=== PATIENT | male | born 1955 | race Caucasian/White ===

== ENCOUNTER 2016-10-18 07:53 | Day surgery (SDC) | payer BC ==
[2016-10-14 14:45] VITALS: BMI 30.9
[~2016-10-18 07:53] MED LIST: LIDOCAINE 1% 20 ML VIAL (10MG/ML) FOR IV START INTRADERMA PRN
[2016-10-18 08:09] VITALS: TEMP 98.2
[2016-10-18] MEDS: LACTATED RINGERS 1,000 ML IV SCH ×2 (08:16→08:29)
[2016-10-18] MEDS ORDERED: PROPOFOL 10 MG/ML 20 ML VIAL IV ONE (08:31)
[2016-10-18 09:08] VITALS: RESP 18
--- NOTE | 2016-10-18 09:13 | P.PCN ---
Date of Procedure: 10/18/16 Procedure(s) Performed: Procedure: Total colonoscopy. Preoperative diagnosis: Screening for neoplasia patient has history of polyps. Postoperative diagnosis: Exam within normal limits. Preparation: HalfLytely prep. Sedation: Was provided by anesthesia. Brief clinical history: The patient is 61-year-old male who is scheduled for this evaluation because of history of polyps. His last exam was in July 2011 and his first exam was in 2005. The patient has no abdominal complaints, bleeding or anemia. There is family history of colon cancer in his maternal grandmother as well as her brother. His sister had polyps. Procedure: With the patient on his left lateral decubitus position and after informed consent and adequate sedation, the perianal area was inspected and it did not show any fissures or fistulas. There were no masses felt on digital rectal examination. The Olympus CFQ 160L video colonoscope was then inserted in the rectum in the usual fashion and advanced to the cecum. The mucosa appeared healthy. No polyps or tumors were seen or any diverticular disease or other pathology. I retroflexed endoscope in the rectum before the endoscope was withdrawn. The patient tolerated the procedure well. Plan: The patient was reassured. He will follow up with you as planned and I recommended a repeat exam in 5 years.
[2016-10-18 09:32] VITALS: BP 123/76; PULSE 68
== END 2016-10-18 09:55 | disposition home or self-care (01) ==
LOC: ORWHC2ENDO 07:53
DX: Z12.11 Encounter for screening for malignant neoplasm of colon (principal); Z86.010 Personal history of colon polyps; Z80.0 Family history of malignant neoplasm of digestive organs; I25.10 Atherosclerotic heart disease of native coronary artery without angina pectoris; I10 Essential (primary) hypertension; Z87.891 Personal history of nicotine dependence; E78.5 Hyperlipidemia, unspecified; G47.33 Obstructive sleep apnea (adult) (pediatric); Z79.82 Long term (current) use of aspirin; Z79.899 Other long term (current) drug therapy
CPT/HCPCS: J2704; G0105; 99153

== ENCOUNTER 2017-10-23 10:02 | Inpatient (IN) | payer BC ==
--- NOTE | 2017-10-23 10:23 | ED ---
General Adult HPI - General Chief complaint: Chest Pain Stated complaint: Chest pain Time Seen by Provider: 10/23/17 10:13 Source: patient, family, RN notes reviewed, old records reviewed Mode of arrival: wheelchair Limitations: no limitations - History of Present Illness Initial comments: This is a 62-year-old male the ER for evasive chest pain near syncopal event. Patient does have history of heart history has history of ventricular fibrillation. Patient has follow-up with cardiology, did have heart catheterization in the past. Patient states her no chest pain has continued. He has no shortness of breath. Patient has a chest pain for 3-4 days, is been episodic. Patient was at [employer] today had that episode chest pain again and then became diaphoretic and fell using pass out. At this point patient symptoms are improved, he denies pain. - Related Data Home Medications Medication Instructions Recorded Confirmed Aspirin 81 mg PO DAILY 10/14/16 10/23/17 Atorvastatin [Lipitor] 40 mg PO HS 10/14/16 10/23/17 Citalopram Hydrobromide [CeleXA] 20 mg PO DAILY 10/14/16 10/23/17 Isosorbide Mononitrate ER [Imdur] 30 mg PO DAILY 10/14/16 10/23/17 Losartan/Hydrochlorothiazide 1 tab PO DAILY 10/14/16 10/23/17 [Losartan-Hctz 100-25 mg Tab] Methylphenidate HCl [Ritalin] 10 mg PO AC-TID 10/14/16 10/23/17 Metoprolol Succinate (ER) [Toprol 50 mg PO DAILY 10/14/16 10/23/17 Xl] Multivitamin [Men's Multi-Vitamin] 1 tab PO DAILY 10/14/16 10/23/17 amLODIPine BESYLATE [Norvasc] 5 mg PO HS 10/14/16 10/23/17 Omeprazole 20 mg PO DAILY 10/23/17 10/23/17 Allergies Allergy/AdvReac Type Severity Reaction Status Date / Time No Known Allergies Allergy Verified 10/23/17 10:53 Review of Systems ROS Statement: Those systems with pertinent positive or pertinent negative responses have been documented in the HPI. ROS Other: All systems not noted in ROS Statement are negative. Past Medical History Past Medical History: Hyperlipidemia, Hypertension, Myocardial Infarction ([place]), Osteoarthritis (OA), Sleep Apnea/CPAP/BIPAP Last Myocardial Infarction Date:: 2012 History of Any Multi-Drug Resistant Organisms: None Reported Past Surgical History: Heart Catheterization, Orthopedic Surgery, Tonsillectomy Additional Past Surgical History / Comment(s): R foot & R ankle surgery, colonoscopy. Past Anesthesia/Blood Transfusion Reactions: No Reported Reaction Past Psychological History: ADD/ADHD, Depression Smoking Status: Former smoker Past Alcohol Use History: None Reported Past Drug Use History: Marijuana - Past Family History Mother Family Medical History: Cancer Additional Family Medical History / Comment(s): Cervical Father Family Medical History: Cancer Additional Family Medical History / Comment(s): Prostate General Exam Limitations: no limitations General appearance: alert, in no apparent distress Head exam: Present: atraumatic, normocephalic, normal inspection Eye exam: Present: normal appearance, PERRL, EOMI. Absent: scleral icterus, conjunctival injection, periorbital swelling ENT exam: Present: normal exam, mucous membranes moist Neck exam: Present: normal inspection. Absent: tenderness, meningismus, lymphadenopathy Respiratory exam: Present: normal lung sounds bilaterally. Absent: respiratory distress, wheezes, rales, rhonchi, stridor Cardiovascular Exam: Present: regular rate, normal rhythm, normal heart sounds. Absent: systolic murmur, diastolic murmur, rubs, gallop, clicks GI/Abdominal exam: Present: soft, normal bowel sounds. Absent: distended, tenderness, guarding, rebound, rigid Extremities exam: Present: normal inspection, full ROM, normal capillary refill. Absent: tenderness, pedal edema, joint swelling, calf tenderness Back exam: Present: normal inspection Neurological exam: Present: alert, oriented X3, CN II-XII intact Psychiatric exam: Present: normal affect, normal mood Skin exam: Present: warm, dry, intact, normal color. Absent: rash Course Vital Signs 10/23/17 10/23/17 10:11 10:50 Temperature 97.6 F Pulse Rate 75 68 Respiratory 18 16 Rate Blood Pressure 144/86 127/70 O2 Sat by Pulse 97 100 Oximetry - Reevaluation(s) Reevaluation #1: 10/23/17 10:23 Medical record and prior heart history I reviewed Reevaluation #2: 10/23/17 11:19 Patient patient denies chest pain EKG Findings - EKG Comments: EKG Findings:: EKG shows normal sinus rhythm rate of 73, SC 160, QRS 108, QTC 471 Medical Decision Making - Medical Decision Making 60 female the ER with history of chest pain history of heart disease history of heart attack history of V. tach. Patient had near syncope and chest pain earlier in the day and chest pain 2 days. Patient will be admitted for anticoagulation, collagen cardiac observation and evaluation, troponin is elevated - Lab Data Result diagrams: 10/23/17 10:10 10/23/17 10:10 Lab Results 10/23/17 10/23/17 10/23/17 Range/Units 10:10 10:10 10:10 WBC 10.0 (3.8-10.6) k/uL RBC 4.92 (4.30-5.90) m/uL Hgb 14.6 (13.0-17.5) gm/dL Hct 44.3 (39.0-53.0) % MCV 90.0 (80.0-100.0) fL MCH 29.7 (25.0-35.0) pg MCHC 32.9 (31.0-37.0) g/dL RDW 13.9 (11.5-15.5) % Plt Count 232 (150-450) k/uL Neutrophils % 82 % Lymphocytes % 12 % Monocytes % 5 % Eosinophils % 1 % Basophils % 0 % Neutrophils # 8.2 H (1.3-7.7) k/uL Lymphocytes # 1.2 (1.0-4.8) k/uL Monocytes # 0.5 (0-1.0) k/uL Eosinophils # 0.1 (0-0.7) k/uL Basophils # 0.0 (0-0.2) k/uL PT (9.0-12.0) sec INR (<1.2) APTT (22.0-30.0) sec Sodium 140 (137-145) mmol/L Potassium 4.2 (3.5-5.1) mmol/L Chloride 104 (98-107) mmol/L Carbon Dioxide 25 (22-30) mmol/L Anion Gap 11 mmol/L BUN 17 (9-20) mg/dL Creatinine 0.82 (0.66-1.25) mg/dL Est GFR (MDRD) Af Amer >60 (>60 ml/min/1.73 sqM) Est GFR (MDRD) Non-Af >60 (>60 ml/min/1.73 sqM) Glucose 118 H (74-99) mg/dL Calcium 9.5 (8.4-10.2) mg/dL Magnesium 1.8 (1.6-2.3) mg/dL Total Bilirubin 0.6 (0.2-1.3) mg/dL AST 61 H (17-59) U/L ALT 42 (21-72) U/L Alkaline Phosphatase 71 (38-126) U/L Total Creatine Kinase 423 H (55-170) U/L CK-MB (CK-2) 40.2 H* (0.0-2.4) ng/mL CK-MB (CK-2) Rel Index 9.5 Troponin I 2.360 H* (0.000-0.034) ng/mL NT-Pro-B Natriuret Pep pg/mL Total Protein 7.4 (6.3-8.2) g/dL Albumin 4.2 (3.5-5.0) g/dL Lipase 178 (23-300) U/L 10/23/17 10/23/17 Range/Units 10:10 10:10 WBC (3.8-10.6) k/uL RBC (4.30-5.90) m/uL Hgb (13.0-17.5) gm/dL Hct (39.0-53.0) % MCV (80.0-100.0) fL MCH (25.0-35.0) pg MCHC (31.0-37.0) g/dL RDW (11.5-15.5) % Plt Count (150-450) k/uL Neutrophils % % Lymphocytes % % Monocytes % % Eosinophils % % Basophils % % Neutrophils # (1.3-7.7) k/uL Lymphocytes # (1.0-4.8) k/uL Monocytes # (0-1.0) k/uL Eosinophils # (0-0.7) k/uL Basophils # (0-0.2) k/uL PT 10.8 (9.0-12.0) sec INR 1.1 (<1.2) APTT 25.1 (22.0-30.0) sec Sodium (137-145) mmol/L Potassium (3.5-5.1) mmol/L Chloride (98-107) mmol/L Carbon Dioxide (22-30) mmol/L Anion Gap mmol/L BUN (9-20) mg/dL Creatinine (0.66-1.25) mg/dL Est GFR (MDRD) Af Amer (>60 ml/min/1.73 sqM) Est GFR (MDRD) Non-Af (>60 ml/min/1.73 sqM) Glucose (74-99) mg/dL Calcium (8.4-10.2) mg/dL Magnesium (1.6-2.3) mg/dL Total Bilirubin (0.2-1.3) mg/dL AST (17-59) U/L ALT (21-72) U/L Alkaline Phosphatase (38-126) U/L Total Creatine Kinase (55-170) U/L CK-MB (CK-2) (0.0-2.4) ng/mL CK-MB (CK-2) Rel Index Troponin I (0.000-0.034) ng/mL NT-Pro-B Natriuret Pep 692 pg/mL Total Protein (6.3-8.2) g/dL Albumin (3.5-5.0) g/dL Lipase (23-300) U/L - Radiology Data Radiology results: report reviewed (Chest x-rays negative for acute disease), image reviewed Critical Care Time Critical Care Time: Yes Total Critical Care Time: 31 Disposition Clinical Impression: Acute non-ST segment elevation myocardial infarction (STEMI) following previous myocardial infarction, Chest pain, Near syncope Disposition: ADMITTED IP TO THIS HOSP Condition: Serious Referrals: Alireza Wan MD [Primary Care Provider] - 1-2 days
[2017-10-23 10:34] LABS: Basophils % (A) 0 %; Eosinophils # (A) 0.1 k/uL (0-0.7); Eosinophils % (A) 1 %; HCT 44.3 % (39.0-53.0); HGB 14.6 gm/dL (13.0-17.5); Lymphocytes # (A) 1.2 k/uL (1.0-4.8); Lymphocytes % (A) 12 %; MCH 29.7 pg (25.0-35.0); MCHC 32.9 g/dL (31.0-37.0); Mean Platelet Volume 7.9; Monocytes # (A) 0.5 k/uL (0-1.0); Monocytes % (A) 5 %; Neutrophils # (A) 8.2 k/uL (1.3-7.7); Neutrophils % (A) 82 %; Platelet Count 232 k/uL (150-450); RBC 4.92 m/uL (4.30-5.90); RDW 13.9 % (11.5-15.5)
[2017-10-23 10:47] LABS: INR 1.1 (<1.2); Partial Thromboplastin Time 25.1 sec (22.0-30.0); Prothrombin Time 10.8 sec (9.0-12.0)
[2017-10-23 10:48] LABS: ALT 42 U/L (21-72); AST 61 U/L (17-59); Albumin 4.2 g/dL (3.5-5.0); Alkaline Phosphatase 71 U/L (38-126); Anion Gap 11 mmol/L; Blood Urea Nitrogen 17 mg/dL (9-20); Calcium 9.5 mg/dL (8.4-10.2); Carbon Dioxide 25 mmol/L (22-30); Chloride 104 mmol/L (98-107); Glucose 118 mg/dL (74-99); Lipase 178 U/L (23-300); Magnesium 1.8 mg/dL (1.6-2.3); Potassium 4.2 mmol/L (3.5-5.1); Sodium 140 mmol/L (137-145); Total Bilirubin 0.6 mg/dL (0.2-1.3); Total Protein 7.4 g/dL (6.3-8.2)
--- NOTE | 2017-10-23 10:49 | XR ---
EXAMINATION TYPE: XR chest 2V DATE OF EXAM: 10/23/2017 HISTORY: Chest Pain. REFERENCE: Previous study dated 05/28/2013. FINDINGS: The lungs are overinflated. The lungs are clear. Pleural space are clear. Heart size is upp er limits of normal. IMPRESSION: COPD.
[2017-10-23 11:15] LABS: Creatine Kinase MB 40.2 ng/mL (0.0-2.4); Troponin I 2.36 ng/mL (0.000-0.034)
[2017-10-23] MEDS ORDERED: MORPHINE SULFATE 5 MG/ML SYRINGE IV PRN (11:17)
[2017-10-23] MEDS ORDERED: ASPIRIN 81 MG PO STA (11:17)
[2017-10-23] MEDS ORDERED: HEPARIN SODIUM,PORCINE 5,000 UNIT/ML 1 ML VIAL IV PRN (11:17)
[2017-10-23] MEDS ORDERED: HEPARIN SODIUM,PORCINE 5,000 UNIT/ML 1 ML VIAL IV ONE (11:17)
[2017-10-23] MEDS ORDERED: NITROGLYCERIN SL TABS 0.4 MG TAB SUBLINGUAL PRN (11:17)
[2017-10-23] MEDS: HEPARIN SOD,PORK IN 0.45% NACL 25,000 UNIT in 0.45% NACL 1 500ML.BAG IV SCH (11:40)
[2017-10-23] MEDS ORDERED: MORPHINE SULFATE 2 MG/ML SYRINGE IV PRN (13:53)
--- NOTE | 2017-10-23 17:45 | P.HPIM ---
History of Present Illness H&P Date: 10/23/17 Chief Complaint: chest pain 62 yr old M with patient of Dr. Wan with PMH of HTN, H/o DC managed medically , h/o Vtach presents with substernal pain for the past 1 week. Patient stats pain was intermittent in character at rest but became continuous since last night. Patient was at [employer] this morning when he started having substernal chest pain associated with dizziness, spinning of the room patient felt like he would pass out and decided to come to the ER. Troponin on admission was 2.36, EKG is normal sinus rhythm with Q waves present in lead 2 when lead 3 concerning for NSTEMI/ ACS. Heparin drip was initiated. Chest pain has resolved after admission patient of aspirin. Cardiology consult placed. Nothing by mouth after midnight Review of Systems Constitutional: Denies anorexia, Denies chills, Denies chronic headaches, Denies chronic pain, Denies fever, Denies malaise, Denies poor appetite Eyes: denies blurred vision, denies decreased vision, denies diplopia, denies dry eye Ears: deny: decreased hearing Ears, nose, mouth and throat: Denies ant. neck pain, Denies dysphagia, Denies headache, Denies neck lump, Denies nose pain, Denies odynophagia, Denies post- nasal drip, Denies sore throat, Denies vertigo Cardiovascular: Reports chest pain, Reports decreased exercise tolerance, Reports dyspnea on exertion, Reports high blood pressure, Reports lightheadedness, Denies irregular heart beat, Denies leg edema, Denies orthopnea , Denies palpitations, Denies paroxysmal nocturnal dyspnea, Denies shortness of breath, Denies syncope Respiratory: Denies congestion, Denies cough, Denies cough with sputum, Denies home oxygen, Denies respiratory infections, Denies snoring, Denies wheezing Gastrointestinal: Denies abdominal pain, Denies bloating, Denies BRBPR, Denies change in bowel habits, Denies heartburn, Denies nausea, Denies vomiting Genitourinary: Denies hematuria, Denies urinary frequency, Denies urinary hesitancy Musculoskeletal: Denies arm numbness/tingling, Denies morning stiffness, Denies muscle cramps, Denies muscle weakness Integumentary: Denies rash, Denies sores, Denies unusual bruising Neurological: Denies ataxia, Denies balance difficulties, Denies motor disturbance, Denies numbness, Denies weakness, Denies visual changes Psychiatric: Denies anxiety, Denies depression Endocrine: Denies high blood sugars, Denies palpitations Hematologic/Lymphatic: Denies easy bruising, Denies lymphadenopathy Past Medical History Past Medical History: Hyperlipidemia, Hypertension, Myocardial Infarction ([place]), Osteoarthritis (OA), Sleep Apnea/CPAP/BIPAP Additional Past Medical History / Comment(s): kidney stones Last Myocardial Infarction Date:: 2012 History of Any Multi-Drug Resistant Organisms: None Reported Past Surgical History: Heart Catheterization, Orthopedic Surgery, Tonsillectomy Additional Past Surgical History / Comment(s): R foot & R ankle surgery, colonoscopy. Past Anesthesia/Blood Transfusion Reactions: No Reported Reaction Smoking Status: Former smoker - Past Family History Mother Family Medical History: Cancer Additional Family Medical History / Comment(s): Cervical Father Family Medical History: Cancer Additional Family Medical History / Comment(s): Prostate at the age of 70 Brother(s) Family Medical History: Coronary Artery Disease (CAD) ( of heart attack at the age 60 , started having heart attack at the age of 50 ) Medications and Allergies Home Medications Medication Instructions Recorded Confirmed Type Aspirin 81 mg PO DAILY 10/14/16 10/23/17 History Atorvastatin [Lipitor] 40 mg PO HS 10/14/16 10/23/17 History Citalopram Hydrobromide [CeleXA] 20 mg PO DAILY 10/14/16 10/23/17 History Isosorbide Mononitrate ER [Imdur] 30 mg PO DAILY 10/14/16 10/23/17 History Losartan/Hydrochlorothiazide 1 tab PO DAILY 10/14/16 10/23/17 History [Losartan-Hctz 100-25 mg Tab] Methylphenidate HCl [Ritalin] 10 mg PO AC-TID 10/14/16 10/23/17 History Metoprolol Succinate (ER) [Toprol 50 mg PO DAILY 10/14/16 10/23/17 History Xl] Multivitamin [Men's Multi-Vitamin] 1 tab PO DAILY 10/14/16 10/23/17 History amLODIPine BESYLATE [Norvasc] 5 mg PO HS 10/14/16 10/23/17 History Omeprazole 20 mg PO DAILY 10/23/17 10/23/17 History Allergies Allergy/AdvReac Type Severity Reaction Status Date / Time No Known Allergies Allergy Verified 10/23/17 10:53 Physical Exam Vitals: Vital Signs Temp Pulse Pulse Resp BP BP Pulse Ox 10/23/17 15:05 97.1 F L 59 L 20 133/82 94 L 10/23/17 14:30 98.3 F 56 L 18 100/74 99 10/23/17 13:45 55 L 20 117/75 99 10/23/17 12:45 68 20 129/65 99 10/23/17 11:41 97.9 F 55 L 16 149/82 98 10/23/17 10:50 68 16 127/70 100 10/23/17 10:11 97.6 F 75 18 144/86 97 Intake and Output 10/23/17 10/23/17 10/23/17 06:59 14:59 22:59 Other: Weight 108.862 kg Patient Weight 10/24/17 06:59 Weight 108.862 kg - Constitutional General appearance: average body habitus, no acute distress - EENT Eyes: anicteric sclerae, EOMI, PERRLA ENT: hearing grossly normal Ears: bilateral: normal - Neck Neck: no lymphadenopathy, normal ROM Carotids: bilateral: upstroke normal Thyroid: bilateral: normal size - Respiratory Respiratory: bilateral: CTA, negative: diminished, dullness, rales, rhonchi, wheezing - Cardiovascular Rhythm: regular Heart sounds: normal: S1, S2 Abnormal Heart Sounds: no systolic murmur, no diastolic murmur ankle Peripheral Edema: bilateral: None - Gastrointestinal General gastrointestinal: no distended, normal bowel sounds, soft - Integumentary Integumentary: no calor, no pale, no rash - Neurologic Neurologic: CNII-XII intact - Musculoskeletal Musculoskeletal: gait normal, strength equal bilaterally - Psychiatric Psychiatric: A&O x's 3, appropriate affect, intact judgment & insight Results CBC & Chem 7: 10/23/17 10:10 10/23/17 10:10 Labs: Abnormal Lab Results - Last 24 Hours (Table) 10/23/17 10/23/17 10/23/17 Range/Units 10:10 10:10 10:10 Neutrophils # 8.2 H (1.3-7.7) k/uL Glucose 118 H (74-99) mg/dL AST 61 H (17-59) U/L Total Creatine Kinase 423 H (55-170) U/L CK-MB (CK-2) 40.2 H* (0.0-2.4) ng/mL Troponin I 2.360 H* (0.000-0.034) ng/mL Thrombosis Risk Factor Assmnt - DVT/VTE Prophylaxis DVT/VTE Prophylaxis: Pharmacologic Prophylaxis ordered - Choose All That Apply Each Factor Represents 1 point: Acute DC Each Risk Factor Represents 2 Points: Age 61-74 years Thrombosis Risk Factor Assessment Total Risk Factor Score: 3 Thrombosis Risk Factor Assessment Level: Moderate Risk Assessment and Plan Plan: #1 acute chest pain likely secondary to ACS. Patient has history of myocardial infarction in 2012 which was managed medically. No cardiac stent was placed at that time. Patient is started on aspirin, statin and metoprolol during that admission. Continue aspirin 325 mg, atorvastatin 40 mg, metoprolol titrate 25 mg twice daily. Echo ordered. Heparin drip. Cardiology consult. Troponin 1 elevated, repeat troponin pending. Patient will likely need a cardiac cath tomorrow morning keep patient nothing by mouth after midnight #2 hypertension continue home medications including metoprolol 25 mg twice a day daily, Norvasc, hydrochlorothiazide, lisinopril and Imdur #3 hyperlipidemia continue atorvastatin 40 mg daily #4 history of ventricular tachycardia Sees Dr. Baker as outpatient. No recurrent episodes since then #5 obstructive sleep apnea, patient is to use his own CPAP at night #6 GERD/GI prophylaxis continue Prilosec 20 mg daily #7 CODE STATUS full code #8 patient name need to be inpatient for 1-2 midnights DVT prophylaxis with heparin drip
[2017-10-23 18:43] LABS: Creatine Kinase MB 65.5 ng/mL (0.0-2.4); Troponin I 13.1 ng/mL (0.000-0.034)
[2017-10-23] MEDS ORDERED: METOPROLOL TARTRATE 50 MG TAB PO SCH (21:00)
[2017-10-23] MEDS ORDERED: ATORVASTATIN 40 MG TAB PO SCH (21:00)
[2017-10-23] MEDS: METOPROLOL TARTRATE 25 MG TAB PO SCH (21:28)
[2017-10-23] MEDS: amLODIPine 5 MG TAB PO SCH (21:28)
[2017-10-23] MEDS: SODIUM CHLORIDE 0.9% 500 ML IV SCH (21:36)
[2017-10-23 23:57] LABS: Creatine Kinase MB 43.2 ng/mL (0.0-2.4); Troponin I 12.6 ng/mL (0.000-0.034)
[2017-10-24 06:02] LABS: Basophils % (A) 0 %; Eosinophils # (A) 0.2 k/uL (0-0.7); Eosinophils % (A) 2 %; HCT 44.2 % (39.0-53.0); HGB 14.6 gm/dL (13.0-17.5); Lymphocytes # (A) 1.7 k/uL (1.0-4.8); Lymphocytes % (A) 20 %; MCV 90.7 fL (80.0-100.0); Mean Platelet Volume 8.1; Monocytes # (A) 0.6 k/uL (0-1.0); Monocytes % (A) 7 %; Neutrophils # (A) 5.5 k/uL (1.3-7.7); Neutrophils % (A) 68 %; Platelet Count 205 k/uL (150-450); RBC 4.87 m/uL (4.30-5.90); RDW 14.4 % (11.5-15.5); WBC 8.2 k/uL (3.8-10.6)
[2017-10-24] MEDS: PANTOPRAZOLE 40 MG TABLET PO SCH (06:25)
[2017-10-24 06:43] LABS: ALT 46 U/L (21-72); AST 94 U/L (17-59); Albumin 3.9 g/dL (3.5-5.0); Alkaline Phosphatase 74 U/L (38-126); Anion Gap 9 mmol/L; Blood Urea Nitrogen 12 mg/dL (9-20); Calcium 9.1 mg/dL (8.4-10.2); Carbon Dioxide 31 mmol/L (22-30); Chloride 103 mmol/L (98-107); Cholesterol 132 mg/dL (<200); Glucose 106 mg/dL (74-99); HDL Cholesterol 45 mg/dL (40-60); LDL Cholesterol,Calculated 77 mg/dL (0-99); Magnesium 1.8 mg/dL (1.6-2.3); Potassium 4.1 mmol/L (3.5-5.1); Sodium 143 mmol/L (137-145); Total Bilirubin 0.6 mg/dL (0.2-1.3); Total Protein 6.9 g/dL (6.3-8.2); Triglycerides 51 mg/dL (<150)
[2017-10-24] MEDS: HEPARIN SOD,PORK IN 0.45% NACL 25,000 UNIT in 0.45% NACL 1 500ML.BAG IV SCH (07:37)
[2017-10-24] MEDS: LOSARTAN-HCTZ 50-12.5 MG 1 EACH TAB PO SCH (08:07)
[2017-10-24] MEDS: METOPROLOL TARTRATE 25 MG TAB PO SCH ×2 (08:07→21:51)
[2017-10-24] MEDS: CITALOPRAM HYDROBROMIDE 20 MG TAB PO SCH (08:07)
[2017-10-24] MEDS: MULTIVITAMINS, THERA 1 EACH TAB PO SCH (08:08)
[2017-10-24] MEDS: ISOSORBIDE MONONITRATE ER 30 MG TAB.ER.24H PO SCH (08:08)
--- NOTE | 2017-10-24 08:22 | P.CRDCN ---
History of Present Illness Consult date: 10/24/17 Requesting physician: Alexander Marques Consult reason: non-Q-wave SD Chief complaint: Chest pain History of present illness: Is a 62-year-old gentleman with history of hypertension, hyperlipidemia, nonsmoker, nondiabetic, sleep apnea, ischemic cardiomyopathy, according to the patient, he presented to the hospital in 2012 with myocardial infarction, he states that he had ventricular tachycardia at that time requiring defibrillation. He follows with Dr. Baker in the office. Cardiac catheterization performed at that time revealed mild to moderate triple-vessel coronary artery disease. Most recent stress test was performed in August 2016 which revealed a fixed inferior apical defect. Patient presents to the hospital with symptoms of chest discomfort which she describes as a heavy pressure sensation. He states he has been noticing these symptoms off and on for approximately one week. On Tuesday he had symptoms for the entire day off and on, went to [employer]ist on Tuesday and became extremely diaphoretic and felt as though he may pass out. This reminded him of what he had at the time of his SD for this reason he came to the emergency room for further evaluation.EkG on arrival here showed a normal sinus rhythm with mild ST elevation in the inferior leads. X-ray revealed COPD. EKG showed normal sinus rhythm with mild improvement in the ST-T wave changes in the inferior leads. She 133/80, heart rate in the 70s, 98% on room air, patient is afebrile. CBC normal, d-dimer 0.5, sodium 143, potassium 4.1, and 103, CO2 31, BUN 12, creatinine 0.8. Magnesium level I.8. Troponins on presentation here 2.3, subsequent troponins 13 and 12. Cholesterol 132, triglycerides 51, LDL 77, HDL 45. Pataient was initiated on IV heparin on presentation here, at present he is currently chest pain-free. Past Medical History Past Medical History: Hyperlipidemia, Hypertension, Myocardial Infarction (SD), Osteoarthritis (OA), Sleep Apnea/CPAP/BIPAP Additional Past Medical History / Comment(s): kidney stones Last Myocardial Infarction Date:: 2012 History of Any Multi-Drug Resistant Organisms: None Reported Past Surgical History: Heart Catheterization, Orthopedic Surgery, Tonsillectomy Additional Past Surgical History / Comment(s): R foot & R ankle surgery, colonoscopy. Past Anesthesia/Blood Transfusion Reactions: No Reported Reaction Smoking Status: Former smoker - Past Family History Mother Family Medical History: Cancer Additional Family Medical History / Comment(s): Cervical Father Family Medical History: Cancer Additional Family Medical History / Comment(s): Prostate at the age of 70 Brother(s) Family Medical History: Coronary Artery Disease (CAD) ( of heart attack at the age 60 , started having heart attack at the age of 50 ) Medications and Allergies Home Medications Medication Instructions Recorded Confirmed Type Aspirin 81 mg PO DAILY 10/14/16 10/23/17 History Atorvastatin [Lipitor] 40 mg PO HS 10/14/16 10/23/17 History Citalopram Hydrobromide [CeleXA] 20 mg PO DAILY 10/14/16 10/23/17 History Isosorbide Mononitrate ER [Imdur] 30 mg PO DAILY 10/14/16 10/23/17 History Losartan/Hydrochlorothiazide 1 tab PO DAILY 10/14/16 10/23/17 History [Losartan-Hctz 100-25 mg Tab] Methylphenidate HCl [Ritalin] 10 mg PO AC-TID 10/14/16 10/23/17 History Metoprolol Succinate (ER) [Toprol 50 mg PO DAILY 10/14/16 10/23/17 History Xl] Multivitamin [Men's Multi-Vitamin] 1 tab PO DAILY 10/14/16 10/23/17 History amLODIPine BESYLATE [Norvasc] 5 mg PO HS 10/14/16 10/23/17 History Omeprazole 20 mg PO DAILY 10/23/17 10/23/17 History Allergies Allergy/AdvReac Type Severity Reaction Status Date / Time No Known Allergies Allergy Verified 10/23/17 10:53 Physical Exam Vitals: Vital Signs Temp Pulse Pulse Pulse Resp BP BP 10/24/17 07:39 70 17 10/24/17 07:36 97.8 F 70 17 133/80 10/24/17 04:00 97.5 F L 65 65 16 132/82 10/24/17 00:00 71 71 16 123/73 10/23/17 20:00 97.6 F 64 60 17 129/79 10/23/17 15:05 97.1 F L 59 L 20 133/82 10/23/17 14:30 98.3 F 56 L 18 100/74 10/23/17 13:45 55 L 20 117/75 10/23/17 12:45 68 20 129/65 10/23/17 11:41 97.9 F 55 L 16 149/82 10/23/17 10:50 68 16 127/70 10/23/17 10:11 97.6 F 75 18 144/86 Pulse Ox 10/24/17 07:39 10/24/17 07:36 98 10/24/17 04:00 97 10/24/17 00:00 94 L 10/23/17 20:00 95 10/23/17 15:05 94 L 10/23/17 14:30 99 10/23/17 13:45 99 10/23/17 12:45 99 10/23/17 11:41 98 10/23/17 10:50 100 10/23/17 10:11 97 Intake and Output 10/23/17 10/24/17 10/24/17 22:59 06:59 14:59 Intake Total 240 412.814 20.689 Output Total 300 1350 Balance -60 -937.186 20.689 Intake: Intake, IV Titration 412.814 20.689 Amount Heparin Sod,Pork in 0.45% 412.814 20.689 NaCl 25,000 unit In 0.45 % NaCl 1 500ml.bag @ 9 UNITS/KG/HR 19.59 mls/hr IV .Q24H [facility] Rx#: [id number] Oral 240 Output: Urine 300 1350 Other: Voiding Method Urinal Urinal Urinal # Voids 1 Weight 108.3 kg PHYSICAL EXAMINATION: HEENT: Head is atraumatic, normocephalic. Pupils equal, round. Neck is supple. There is no elevated jugular venous pressure. HEART EXAMINATION: Heart S1 and S2 1 systolic ejection murmur is heard. CHEST EXAMINATION: Lungs are clear to auscultation and precussion. No chest wall tenderness is noted on palpation or with deep breathing. ABDOMEN: Soft, nontender. Bowel sounds are heard. No organomegaly noted. EXTREMITIES: 2+ peripheral pulses with no evidence of peripheral edema and no calf tenderness noted. NEUROLOGIC patient is awake, alert and oriented -3. . Results 10/24/17 05:49 10/24/17 05:49 Cardiac Enzymes 10/23/17 10/23/17 10/23/17 Range/Units 10:10 10:10 17:32 AST 61 H (17-59) U/L CK-MB (CK-2) 40.2 H* 65.5 H* (0.0-2.4) ng/mL Troponin I 2.360 H* 13.100 H* (0.000-0.034) ng/mL 10/23/17 10/24/17 Range/Units 22:52 05:49 AST 94 H (17-59) U/L CK-MB (CK-2) 43.2 H* (0.0-2.4) ng/mL Troponin I 12.600 H* (0.000-0.034) ng/mL Coagulation 10/23/17 10/23/17 10/23/17 Range/Units 10:10 17:32 22:52 PT 10.8 (9.0-12.0) sec APTT 25.1 47.1 H 39.6 H (22.0-30.0) sec 10/24/17 Range/Units 05:49 PT (9.0-12.0) sec APTT 46.2 H (22.0-30.0) sec Lipids 10/24/17 Range/Units 05:49 Triglycerides 51 (<150) mg/dL Cholesterol 132 (<200) mg/dL HDL Cholesterol 45 (40-60) mg/dL CBC 10/23/17 10/24/17 Range/Units 10:10 05:49 WBC 10.0 8.2 (3.8-10.6) k/uL RBC 4.92 4.87 (4.30-5.90) m/uL Hgb 14.6 14.6 (13.0-17.5) gm/dL Hct 44.3 44.2 (39.0-53.0) % Plt Count 232 205 (150-450) k/uL Comprehensive Metabolic Panel 10/23/17 10/24/17 Range/Units 10:10 05:49 Sodium 140 143 (137-145) mmol/L Potassium 4.2 4.1 (3.5-5.1) mmol/L Chloride 104 103 (98-107) mmol/L Carbon Dioxide 25 31 H (22-30) mmol/L BUN 17 12 (9-20) mg/dL Creatinine 0.82 0.81 (0.66-1.25) mg/dL Glucose 118 H 106 H (74-99) mg/dL Calcium 9.5 9.1 (8.4-10.2) mg/dL AST 61 H 94 H (17-59) U/L ALT 42 46 (21-72) U/L Alkaline Phosphatase 71 74 (38-126) U/L Total Protein 7.4 6.9 (6.3-8.2) g/dL Albumin 4.2 3.9 (3.5-5.0) g/dL Current Medications Generic Name Dose Route Start Last Admin Trade Name Freq PRN Reason Stop Dose Admin Amlodipine Besylate 5 mg 10/23/17 21:00 10/23/17 21:28 Norvasc PO 5 mg HS [facility] Administration Aspirin 325 mg 10/24/17 09:00 Aspirin PO DAILY [facility] Atorvastatin Calcium 40 mg 10/23/17 21:00 10/23/17 21:28 Lipitor PO 40 mg HS [facility] Administration Citalopram Hydrobromide 20 mg 10/24/17 09:00 Celexa PO DAILY [facility] HCTZ/Losartan Potassium 2 each 10/24/17 09:00 Hyzaar 50-12.5 PO DAILY [facility] Heparin Sodium (Porcine) 0 unit 10/23/17 11:17 Heparin IV Q6HR PRN Low PTT Protocol Heparin Sodium/Sodium Chloride 500 mls @ 19.59 mls/hr 10/23/17 11:30 07:37 25,000 unit/ Sodium Chloride IV 11.18 units/kg/hr .Q24H [facility] 24.34 mls/hr Protocol Administration 9 UNITS/KG/HR Sodium Chloride 500 mls @ 20 mls/hr 10/23/17 11:45 10/23/17 21:36 Saline 0.9% IV Not Given .Q24H [facility] Isosorbide Mononitrate 30 mg 10/24/17 09:00 Imdur PO DAILY [facility] Metoprolol Tartrate 25 mg 10/23/17 21:00 10/23/17 21:28 Lopressor PO 25 mg BID [facility] Administration Morphine Sulfate 4 mg 10/23/17 13:53 Morphine Sulfate (Inj) IV Q5M PRN Chest Pain Multivitamins 1 each 10/24/17 09:00 Theragran PO DAILY [facility] Nitroglycerin 0.4 mg 10/23/17 11:17 Nitrostat SUBLINGUAL Q5M PRN Chest Pain Pantoprazole Sodium 40 mg 10/24/17 07:30 10/24/17 06:25 Protonix PO 40 mg AC-BRKFST [facility] Administration Intake and Output 10/23/17 10/24/17 10/24/17 22:59 06:59 14:59 Intake Total 240 412.814 20.689 Output Total 300 1350 Balance -60 -937.186 20.689 Intake: Intake, IV Titration 412.814 20.689 Amount Heparin Sod,Pork in 0.45% 412.814 20.689 NaCl 25,000 unit In 0.45 % NaCl 1 500ml.bag @ 9 UNITS/KG/HR 19.59 mls/hr IV .Q24H [facility] Rx#: [id number] Oral 240 Output: Urine 300 1350 Other: Voiding Method Urinal Urinal Urinal # Voids 1 Weight 108.3 kg 10/24/17 05:49 10/24/17 05:49 EKG Interpretations (text) EKG shows normal sinus rhythm with mild ST elevation in the inferior leads. Assessment and Plan Plan: Assessment and plan #1 non-ST elevation myocardial infarction #2 history of prior myocardial infarction in 2012, cardiac catheterization at that time revealed mild to moderate triple-vessel coronary artery disease, patient also had ventricular tachycardia requiring defibrillation at that presentation. #3 hypertension #4 ischemic cardiomyopathy Number 5 hyperlipidemia #6 sleep apnea Plan We will obtain a stat echocardiogram with Doppler study. Continue IV heparin along with aspirin, Lipitor, Imdur, losartan, metoprolol. Patient has been instructed that he'll need to undergo cardiac catheterization, the risks and the benefits were explained to the patient in detail and he is willing to proceed. DNP note has been reviewed, I agree with a documented findings and plan of care. Patient was seen and examined.
[2017-10-24] MEDS ORDERED: ASPIRIN 325 MG TAB PO SCH ×2 (09:00→14:25)
--- NOTE | 2017-10-24 09:58 | P.PN ---
Subjective Progress Note Date: 10/24/17 62 yr old male patient of Dr. Wan with PMH of HTN, H/o [place] managed medically, h /o Vtach presents with substernal pain for the past 1 week. Patient stats pain was intermittent in character at rest but became continuous since last night. Patient was at [employer] this morning when he started having substernal chest pain associated with dizziness, spinning of the room patient felt like he would pass out and decided to come to the ER. Troponin on admission was 2.36, EKG is normal sinus rhythm with Q waves present in lead 2 when lead 3 concerning for NSTEMI/ ACS. Heparin drip was initiated. Chest pain has resolved after admission patient of aspirin. Cardiology consult placed. Nothing by mouth after midnight 10/24: Repeat troponins are 13.1 and 12.6. Triglycerides 51, cholesterol 132, LDL 77, HDL 45. Echocardiogram report is pending. Patient to have heart cath today. Objective - Vital Signs Vital signs: Vital Signs Temp 97.8 F 10/24/17 07:36 Pulse 70 10/24/17 07:39 Resp 17 10/24/17 07:39 BP 133/80 10/24/17 07:36 Pulse Ox 98 10/24/17 07:36 Intake & Output 10/23/17 10/24/17 10/24/17 18:59 06:59 18:59 Intake Total 240 412.814 20.689 Output Total 300 1350 Balance -60 -937.186 20.689 Weight 108.862 kg 108.3 kg Intake: Intake, IV Titration 412.814 20.689 Amount Heparin Sod,Pork in 0.45% 412.814 20.689 NaCl 25,000 unit In 0.45 % NaCl 1 500ml.bag @ 9 UNITS/KG/HR 19.59 mls/hr IV .Q24H [facility] Rx#: [id number] Oral 240 Output: Urine 300 1350 Other: Voiding Method Urinal Urinal # Voids 1 - Exam - Constitutional General appearance: average body habitus, no acute distress - EENT Eyes: anicteric sclerae, EOMI, PERRLA ENT: hearing grossly normal Ears: bilateral: normal - Neck Neck: no lymphadenopathy, normal ROM Carotids: bilateral: upstroke normal Thyroid: bilateral: normal size - Respiratory Respiratory: bilateral: CTA, negative: diminished, dullness, rales, rhonchi, wheezing - Cardiovascular Rhythm: regular Heart sounds: normal: S1, S2 Abnormal Heart Sounds: no systolic murmur, no diastolic murmur ankle Peripheral Edema: bilateral: None - Gastrointestinal General gastrointestinal: no distended, normal bowel sounds, soft - Integumentary Integumentary: no calor, no pale, no rash - Neurologic Neurologic: CNII-XII intact - Musculoskeletal Musculoskeletal: gait normal, strength equal bilaterally - Psychiatric Psychiatric: A&O x's 3, appropriate affect, intact judgment & insight - Labs CBC & Chem 7: 10/24/17 05:49 10/24/17 05:49 Labs: Abnormal Lab Results - Last 24 Hours (Table) 10/23/17 10/23/17 10/23/17 Range/Units 10:10 10:10 10:10 Neutrophils # 8.2 H (1.3-7.7) k/uL APTT (22.0-30.0) sec Carbon Dioxide (22-30) mmol/L Glucose 118 H (74-99) mg/dL AST 61 H (17-59) U/L Total Creatine Kinase 423 H (55-170) U/L CK-MB (CK-2) 40.2 H* (0.0-2.4) ng/mL Troponin I 2.360 H* (0.000-0.034) ng/mL 10/23/17 10/23/17 10/23/17 Range/Units 17:32 17:32 22:52 Neutrophils # (1.3-7.7) k/uL APTT 47.1 H (22.0-30.0) sec Carbon Dioxide (22-30) mmol/L Glucose (74-99) mg/dL AST (17-59) U/L Total Creatine Kinase 649 H 594 H (55-170) U/L CK-MB (CK-2) 65.5 H* 43.2 H* (0.0-2.4) ng/mL Troponin I 13.100 H* 12.600 H* (0.000-0.034) ng/mL 10/23/17 10/24/17 10/24/17 Range/Units 22:52 05:49 05:49 Neutrophils # (1.3-7.7) k/uL APTT 39.6 H 46.2 H (22.0-30.0) sec Carbon Dioxide 31 H (22-30) mmol/L Glucose 106 H (74-99) mg/dL AST 94 H (17-59) U/L Total Creatine Kinase (55-170) U/L CK-MB (CK-2) (0.0-2.4) ng/mL Troponin I (0.000-0.034) ng/mL Assessment and Plan Plan: #1 acute chest pain likely secondary to ACS. Patient has history of myocardial infarction in 2012 which was managed medically. No cardiac stent was placed at that time. Patient is started on aspirin, statin and metoprolol during that admission. Continue aspirin 325 mg, atorvastatin 40 mg, metoprolol titrate 25 mg twice daily. Echo ordered. Heparin drip. Cardiology consult. Troponin 1 elevated, repeat troponin pending. Patient will likely need a cardiac cath. Keep patient nothing by mouth after midnight #2 hypertension continue home medications including metoprolol 25 mg twice a day daily, Norvasc, hydrochlorothiazide, lisinopril and Imdur #3 hyperlipidemia continue atorvastatin 40 mg daily #4 history of ventricular tachycardia Sees Dr. Baker as outpatient. No recurrent episodes since then #5 obstructive sleep apnea, patient is to use his own CPAP at night #6 GERD/GI prophylaxis continue Prilosec 20 mg daily #7 CODE STATUS full code #8 patient name need to be inpatient for 1-2 midnights DVT prophylaxis with heparin drip Discharge plan: Return home Impression and plan of care have been directed as dictated by the signing physician. Shamika Natarajan nurse practitioner acting as scribe for signing physician.
[2017-10-24] MEDS ORDERED: ATORVASTATIN 80 MG TAB PO STA (10:38)
[2017-10-24] MEDS ORDERED: SODIUM CHLORIDE 0.9% 1,000 ML in EMPTY BAG 1 BAG IV ONE (10:38)
[2017-10-24] MEDS ORDERED: ALPRAZolam 0.25 MG TAB PO PRN (10:38)
[2017-10-24] MEDS ORDERED: ALPRAZolam 0.5 MG TAB PO PRN (10:38)
[2017-10-24] MEDS ORDERED: ASPIRIN 325 MG TAB PO STA (10:38)
[2017-10-24] MEDS ORDERED: NITROGLYCERIN SL TABS 0.4 MG TAB SUBLINGUAL PRN ×2 (10:38→14:23)
--- NOTE | 2017-10-24 10:40 | ECHOF ---
Referral Reason:elevTrop MEASUREMENTS -------- HEIGHT: 180.3 cm WEIGHT: 108.0 kg BP: 133/80 IVSd: 1.5 cm (0.6 - 1.1) LVIDd: 5.2 cm (3.9 - 5.3) LVPWd: 1.3 cm (0.6 - 1.1) IVSs: 2.0 cm LVIDs: 4.6 cm LVPWs: 1.3 cm LAESV Index (A-L): 23.09 ml/m Ao Diam: 3.3 cm (2.0 - 3.7) AV Cusp: 1.9 cm (1.5 - 2.6) LA Diam: 2.8 cm (2.7 - 3.8) MV EXCURSION: 21.171 mm (> 18.000) MV EF SLOPE: 101 mm/s (70 - 150) EPSS: 1.7 cm MV E Carlos: 0.78 m/s MV DecT: 247 ms MV A Carlos: 1.02 m/s MV E/A Ratio: 0.76 RAP: 5.00 mmHg RVSP: 25.72 mmHg FINDINGS -------- Sinus rhythm. This was a technically good study. The left ventricular size is normal. There is mild concentric left ventricular hypertrophy. Overa ll left ventricular systolic function is mild-moderately impaired with, an EF between 40 - 45 %. Mid to Basal inferolateral hypokinesis. The right ventricle is normal in size and function. The left atrium is normal in size. The right atrium is normal in size. Aortic valve is trileaflet and is mildly thickened. Mild mitral regurgitation is present. Mild tricuspid regurgitation present. The right ventricular systolic pressure, as measured by Doppl er, is 25.72mmHg. Pulmonic valve appears structurally normal. The aortic root size is normal. The pericardium is normal. CONCLUSIONS -------- 1. Sinus rhythm. 2. This was a technically good study. 3. The left ventricular size is normal. 4. There is mild concentric left ventricular hypertrophy. 5. Overall left ventricular systolic function is mild-moderately impaired with, an EF between 40 - 45 %. 6. Mid to Basal inferolateral hypokinesis. 7. The right ventricle is normal in size and function. 8. The left atrium is normal in size. 9. The right atrium is normal in size. 10. Aortic valve is trileaflet and is mildly thickened. 11. Mild mitral regurgitation is present. 12. Mild tricuspid regurgitation present. 13. The right ventricular systolic pressure, as measured by Doppler, is 25.72mmHg. 14. Pulmonic valve appears structurally normal. 15. The aortic root size is normal. 16. The pericardium is normal. PONY RIDE ATTENDANT: Melissa Ferguson RDCS
[2017-10-24] MEDS: SODIUM CHLORIDE 0.9% 500 ML IV SCH (12:51)
[2017-10-24] MEDS ORDERED: fentaNYL (PF) 50 MCG/ML 2 ML AMP ONE (13:11)
[2017-10-24] MEDS ORDERED: HEPARIN SODIUM 1,000 UN/ML (10ML VL) ONE (13:11)
[2017-10-24] MEDS ORDERED: VERAPAMIL 2.5 MG/ML 2 ML AMP ONE (13:11)
[2017-10-24] MEDS ORDERED: fentaNYL (PF) 50 MCG/ML 2 ML AMP IV ONE (13:30)
[2017-10-24] MEDS ORDERED: SODIUM CHLORIDE 0.9% 1,000 ML IV ONE (13:32)
[2017-10-24] MEDS ORDERED: LIDOCAINE 2% INJ 20 MG/ML SQ ONE (13:32)
[2017-10-24] MEDS ORDERED: VERAPAMIL SYRINGE (5 MG/10 ML) INTRAARTER ONE ×2 (13:33→13:40)
[2017-10-24] MEDS ORDERED: MIDAZOLAM 2 MG/2 ML VIAL ONE (13:40)
[2017-10-24] MEDS ORDERED: MIDAZOLAM 2 MG/2 ML VIAL IV ONE (13:42)
[2017-10-24] MEDS ORDERED: BIVALIRUDIN BOLUS 250 MG/50 ML IV ONE (13:51)
[2017-10-24] MEDS ORDERED: BIVALIRUDIN 250 MG in SODIUM CHLORIDE 0.9% 50 ML IV ONE (13:52)
[2017-10-24] MEDS ORDERED: PRASUGREL 10 MG TAB PO ONE (13:52)
[2017-10-24] MEDS ORDERED: NITROGLYCERIN 1000MCG/10ML SYRINGE INTRACORON ONE (13:55)
[2017-10-24] MEDS ORDERED: IOHEXOL 350 MG/ML 125ML BOTTLE INJ ONE (14:15)
[2017-10-24] MEDS ORDERED: ZOLPIDEM 5 MG TAB PO PRN (14:23)
[2017-10-24] MEDS ORDERED: MAG HYDROX/AL HYDROX/SIMETH 30 ML CUP PO PRN (14:23)
[2017-10-24] MEDS ORDERED: ATROPINE SULFATE 0.1 MG/ML 10ML SYRINGE IV PRN (14:23)
[2017-10-24] MEDS ORDERED: RX INFO: IV CONTRAST WAS GIVEN 1 EACH MISC MISCELLANE PRN (14:23)
[2017-10-24] MEDS ORDERED: SODIUM CHLORIDE 0.9% 1,000 ML IV SCH (14:30)
[2017-10-24 15:13] VITALS: BMI 31.5
[2017-10-24] MEDS: EZETIMIBE 10 MG TAB PO SCH (15:16)
--- NOTE | 2017-10-24 17:45 | CC ---
CARDIAC CATHETERIZATION REPORT Mr. Alvarez is a 62-year-old male with a history of coronary artery disease who presented with non ST-segment elevation myocardial infarction with mild T-wave inversion inferiorly. In view of that, recommendation was made regarding cardiac catheterization. The procedures as well as risks and complication were discussed with the patient who is in full understanding and agreement. PROCEDURE: Patient was brought to physical laboratory assistant in the fasting semi-sedated state after receiving fentanyl and Benadryl. He was draped and prepped in the usual conventional fashion using Xylocaine anesthesia and Seldinger technique, a 6-Tuvaluan sheath was introduced in the right radial artery. Selective right and left coronary angiography performed using a 5-Tuvaluan 3 and half bend right Carley catheter and a 6-Tuvaluan Jad catheter. Attempt to advance the 3 and half bend 5-Tuvaluan left diagnostic catheter were unsuccessful because of spasm. Images of the coronary arteries were obtained. Following that, angioplasty and stenting of the right coronary artery was performed. Following that, catheter and sheaths were removed. Hemostasis was obtained with deployment of a TR band. There was no immediate complication. Patient is returned to his room in stable condition. FINDINGS: FLUOROSCOPY: There was severe calcification involving all the coronary arteries. 1. Left main this is an ectatic vessel trifurcating distally to the left circumflex, ramus intermedius and right coronary artery. The left main coronary artery has a 10% to 20% plaque in mid segment. The rest of the vessel has no high-grade stenosis. 2. Left anterior descending artery: This is a large-sized vessel reaching towards the apex with a wraparound apex segment. The vessel has a 30 to 40% plaque proximally with another plaque in the mid segment. The rest of the vessel has no high-grade stenosis. 3. Left circumflex: This is a nondominant vessel giving rise to a large obtuse marginal branch. The left obtuse marginal branch has diffuse intimal disease with an area of stenosis of 30% to 40% without any evidence of high-grade stenosis. 4. Ramus intermedius: This vessel reaches toward the apical lateral wall and has intimal disease up to 20 to 30%. 5. Right coronary artery: This is a large dominant vessel bifurcating distally to PDA and posterolateral segment and branches, calcified throughout its course. The right coronary artery in the mid segment has a 99% stenosis. The rest of the vessel has intimal disease without any high-grade stenosis. 6. Left ventriculogram: Left ventriculogram was not performed. CONCLUSION: 1. Critical stenosis involving the right coronary artery. 2. Mild disease in the circumflex and the LAD. RECOMMENDATION: In view of findings and anatomy, I have recommended proceeding with angioplasty and stenting of the right coronary artery. The procedure as well as risks and complications were discussed with the patient who is in full understanding and agreement. MMODL / IJN: [id number] /
--- NOTE | 2017-10-24 17:48 | PTCA ---
PERCUTANEOUSTRANS CORORONARY ANGIOGRAPHY Mr. Alvarez is a 62-year-old male with a known history of coronary artery disease, who presented with non ST-segment elevation myocardial infarction, underwent cardiac catheterization, was found to have critical stenosis involving the mid right coronary artery. In view of that, recommendation was made regarding angioplasty and stenting. The procedure as well as risks and complications were discussed with the patient who is in full understanding and agreement. PROCEDURE: A 6-Micronesian FR4 guiding catheter in the system. After cannulating the right coronary ostium, a 0.014 balanced medium weight J-wire was advanced across the lesion and positioned distally. Then a 2.75 x 15 mm Trek balloon was advanced and one inflation was done at maximum of 10 atmospheres. Following that, the balloon was removed and a 3.0 x 23 mm Xience Alpine stent was deployed. It was dilated to 16 atmospheres. After the last inflation, after appropriate wait, the balloon and the guidewire were withdrawn back in the guiding catheter. Images were obtained, repeated. Those images reveal stable successful stenting. At that point, the guiding catheter, the balloon and the guidewire removed. The sheath was removed. Hemostasis was obtained with deployment of a TR band. There was no immediate complication. Patient is returned to his room in stable condition. Of note, the patient had no chest discomfort or EKG changes with the inflation. He received Angiomax per protocol as well as oral loading dose of Effient. RESULTS: Successful stenting of the mid right coronary artery with reduction of stenosis from 99% to 0%. RECOMMENDATIONS: Patient will be continued on aspirin, Effient, beta margarita, GEOVANNA inhibitor, statin. The importance of dual antiplatelet treatment were discussed with the patient and his family who are in full understanding and agreement. DURATION: Of the procedure: 39 minutes. MMODL / IJN: [id number] /
--- NOTE | 2017-10-24 17:54 | LTR ---
DATE OF SERVICE: 10/24/[address] Wan: I had the pleasure of performing cardiac catheterization and coronary angioplasty and stenting on Mr. Alvarez at [facility] on October 24 and a full copy of procedure note will be forwarded to you. In brief, he was found to have critical stenosis involving the mid right coronary artery, underwent successful stenting of that vessel using a drug-eluting stent. I am hopeful that this procedure will stabilize his status. Thank you again for allowing me to participate in his care. Please feel free to call for any questions. Sincerely yours, MMYUDY / IJN: [id number] /
[2017-10-24] MEDS: amLODIPine 5 MG TAB PO SCH (21:51)
[2017-10-25 06:15] LABS: Basophils % (A) 1 %; Eosinophils # (A) 0.1 k/uL (0-0.7); Eosinophils % (A) 1 %; HCT 45.9 % (39.0-53.0); HGB 15.3 gm/dL (13.0-17.5); Lymphocytes # (A) 1.8 k/uL (1.0-4.8); Lymphocytes % (A) 23 %; MCH 29.6 pg (25.0-35.0); MCHC 33.3 g/dL (31.0-37.0); MCV 88.9 fL (80.0-100.0); Monocytes # (A) 0.7 k/uL (0-1.0); Monocytes % (A) 9 %; Neutrophils # (A) 5.2 k/uL (1.3-7.7); Neutrophils % (A) 63 %; Platelet Count 225 k/uL (150-450); RBC 5.17 m/uL (4.30-5.90); RDW 14.3 % (11.5-15.5); WBC 8.2 k/uL (3.8-10.6)
[2017-10-25 06:29] LABS: ALT 40 U/L (21-72); AST 61 U/L (17-59); Albumin 4.2 g/dL (3.5-5.0); Alkaline Phosphatase 73 U/L (38-126); Anion Gap 11 mmol/L; Blood Urea Nitrogen 13 mg/dL (9-20); Calcium 9.5 mg/dL (8.4-10.2); Carbon Dioxide 27 mmol/L (22-30); Chloride 103 mmol/L (98-107); Glucose 104 mg/dL (74-99); Potassium 4.3 mmol/L (3.5-5.1); Sodium 141 mmol/L (137-145); Total Bilirubin 0.8 mg/dL (0.2-1.3); Total Protein 7.3 g/dL (6.3-8.2)
[2017-10-25] MEDS: PANTOPRAZOLE 40 MG TABLET PO SCH (06:49)
[2017-10-25] MEDS: CITALOPRAM HYDROBROMIDE 20 MG TAB PO SCH (08:05)
[2017-10-25] MEDS: LOSARTAN-HCTZ 50-12.5 MG 1 EACH TAB PO SCH (08:05)
[2017-10-25] MEDS: ISOSORBIDE MONONITRATE ER 30 MG TAB.ER.24H PO SCH (08:05)
[2017-10-25] MEDS: EZETIMIBE 10 MG TAB PO SCH (08:05)
[2017-10-25] MEDS: MULTIVITAMINS, THERA 1 EACH TAB PO SCH (08:06)
[2017-10-25] MEDS: METOPROLOL TARTRATE 25 MG TAB PO SCH ×2 (08:06→20:57)
[2017-10-25] MEDS: SODIUM CHLORIDE 0.9% 500 ML IV SCH (08:07)
[2017-10-25] MEDS: PRASUGREL 10 MG TAB PO SCH (08:09)
[2017-10-25] MEDS: ASPIRIN 81 MG PO SCH (08:43)
[2017-10-25 09:51] VITALS: RESP 18
--- NOTE | 2017-10-25 11:43 | P.DS ---
Providers Date of admission: 10/23/17 11:17 Expected date of discharge: 10/25/17 Attending physician: Alireza Wan Consults: 10/23/17 11:17 Consult Physician Urgent Consulting Provider: Cr Baker Consult Reason/Comments: nstemi Do you want consulting provider notified?: Yes 10/24/17 14:23 Consult Physician Routine Consulting Provider: [facility] Consult Reason/Comments: Post Interventional patient Do you want consulting provider notified?: Already Contacted Primary care physician: Alireza Wan [facility] Course: 62 yr old male patient of Dr. Wan with PMH of HTN, H/o MO managed medically, h /o Vtach presents with substernal pain for the past 1 week. Patient stats pain was intermittent in character at rest but became continuous since last night. Patient was at latter day this morning when he started having substernal chest pain associated with dizziness, spinning of the room patient felt like he would pass out and decided to come to the ER. Troponin on admission was 2.36, EKG is normal sinus rhythm with Q waves present in lead 2 when lead 3 concerning for NSTEMI/ ACS. Heparin drip was initiated. Chest pain has resolved after admission patient of aspirin. Cardiology consult placed. Nothing by mouth after midnight 10/24: Repeat troponins are 13.1 and 12.6. Triglycerides 51, cholesterol 132, LDL 77, HDL 45. Echocardiogram report is pending. Patient to have heart cath today. 10/25: Patient underwent heart catheterization with Dr. Baker finding severe calcification involving all coronary arteries, critical stenosis involving the right coronary artery and mild disease in the circumflex and LAD. He underwent successful stenting of the mid right coronary artery and was started on Effient. Echocardiogram reveals EF of 40-45% with mild concentric left ventricular hypertrophy, mid to basal inferior lateral hypokinesia, mild mitral regurgitation, mild tricuspid regurgitation. Patient has been cleared by cardiology for discharge home today. They have added zetia which will bee continued for home. Patient will be discharged home in stable condition. Discharge diagnoses: 1. Non-ST elevated myocardial infarction 2. Hypertension 3. Hyperlipidemia 4. History of ventricular tachycardia 5. Obstructive sleep apnea 6. GERD Discharge plan: Return home Impression and plan of care have been directed as dictated by the signing physician. Shamika Natarajan nurse practitioner acting as scribe for signing physician. Patient Condition at Discharge: Good Plan - Discharge Summary Discharge Rx Participant: No New Discharge Prescriptions: New Atorvastatin [Lipitor] 80 mg PO HS #30 tab Nitroglycerin Sl Tabs [Nitrostat] 0.4 mg SUBLINGUAL Q5M PRN #25 tab PRN Reason: Chest Pain Prasugrel [Effient] 10 mg PO DAILY #30 tab Ezetimibe [Zetia] 10 mg PO DAILY #30 tab Continue Citalopram Hydrobromide [CeleXA] 20 mg PO DAILY Isosorbide Mononitrate ER [Imdur] 30 mg PO DAILY Metoprolol Succinate (ER) [Toprol XL] 50 mg PO DAILY Aspirin 81 mg PO DAILY Methylphenidate HCl [Ritalin] 10 mg PO AC-TID amLODIPine BESYLATE [Norvasc] 5 mg PO HS Multivitamin [Men's Multi-Vitamin] 1 tab PO DAILY Losartan/Hydrochlorothiazide [Losartan-Hctz 100-25 mg Tab] 1 tab PO DAILY Omeprazole 20 mg PO DAILY Discontinued Atorvastatin [Lipitor] 40 mg PO HS Discharge Medication List Aspirin 81 mg PO DAILY 10/14/16 [History] Citalopram Hydrobromide [CeleXA] 20 mg PO DAILY 10/14/16 [History] Isosorbide Mononitrate ER [Imdur] 30 mg PO DAILY 10/14/16 [History] Losartan/Hydrochlorothiazide [Losartan-Hctz 100-25 mg Tab] 1 tab PO DAILY [History] Methylphenidate HCl [Ritalin] 10 mg PO AC-TID 10/14/16 [History] Metoprolol Succinate (ER) [Toprol XL] 50 mg PO DAILY 10/14/16 [History] Multivitamin [Men's Multi-Vitamin] 1 tab PO DAILY 10/14/16 [History] amLODIPine BESYLATE [Norvasc] 5 mg PO HS 10/14/16 [History] Omeprazole 20 mg PO DAILY 10/23/17 [History] Atorvastatin [Lipitor] 80 mg PO HS #30 tab 10/25/17 [Rx] Ezetimibe [Zetia] 10 mg PO DAILY #30 tab 10/25/17 [Rx] Nitroglycerin Sl Tabs [Nitrostat] 0.4 mg SUBLINGUAL Q5M PRN #25 tab 10/25/17 [Rx ] Prasugrel [Effient] 10 mg PO DAILY #30 tab 10/25/17 [Rx] Follow up Appointment(s)/Referral(s): Cr Baker MD [STAFF PHYSICIAN] - 10/29/17 9:45 am (TUESDAY ) Alireza Wan MD [Primary Care Provider] - 1 Week Patient Instructions/Handouts: *Surgery [facility] - After Heart Catheterization - Manager Sustainability Instructions, Left Heart Catheterization (DC) Discharge Disposition: HOME SELF-CARE
--- NOTE | 2017-10-25 13:19 | P.PN ---
Subjective Progress Note Date: 10/25/17 62 yr old male patient of Dr. Wan with PMH of HTN, H/o VT managed medically, h /o Vtach presents with substernal pain for the past 1 week. Patient stats pain was intermittent in character at rest but became continuous since last night. Patient was at [place] this morning when he started having substernal chest pain associated with dizziness, spinning of the room patient felt like he would pass out and decided to come to the ER. Troponin on admission was 2.36, EKG is normal sinus rhythm with Q waves present in lead 2 when lead 3 concerning for NSTEMI/ ACS. Heparin drip was initiated. Chest pain has resolved after admission patient of aspirin. Cardiology consult placed. Nothing by mouth after midnight 10/24: Repeat troponins are 13.1 and 12.6. Triglycerides 51, cholesterol 132, LDL 77, HDL 45. Echocardiogram report is pending. Patient to have heart cath today. Cardiology has held discharges patient had a run of nonsustained ventricular tachycardia on the monitor and is now in normal sinus rhythm. Plan for discharge tomorrow. Objective - Vital Signs Vital signs: Vital Signs Temp 97.7 F 10/25/17 08:00 Pulse 69 10/25/17 08:00 Resp 18 10/25/17 08:00 BP 153/84 10/25/17 08:00 Pulse Ox 93 L 10/25/17 08:00 Intake & Output 10/24/17 10/25/17 10/25/17 18:59 06:59 18:59 Intake Total 8782.973 0376 480 Balance 4833.840 8086 480 Weight 108.3 kg 107.1 kg Intake: IV 779.1 Intake, IV Titration 149.898 7295 Amount Heparin Sod,Pork in 0.45% 20.689 NaCl 25,000 unit In 0.45 % NaCl 1 500ml.bag @ 9 UNITS/KG/HR 19.59 mls/hr IV .Q24H [facility] Rx#: [id number] Sodium Chloride 0.9% 1, 1000 000 ml @ 100 mls/hr IV . Q10H [facility] Rx#:[id number] Sodium Chloride 0.9% 1, 300 000 ml In Empty Bag 1 bag @ 1 ML/KG/HR 108.3 mls/ hr IV .Q9H15M [facility] Rx#: [id number] Oral 960 480 Other: Voiding Method Urinal Urinal Urinal # Voids 3 - Exam - Constitutional General appearance: average body habitus, no acute distress - EENT Eyes: anicteric sclerae, EOMI, PERRLA ENT: hearing grossly normal Ears: bilateral: normal - Neck Neck: no lymphadenopathy, normal ROM Carotids: bilateral: upstroke normal Thyroid: bilateral: normal size - Respiratory Respiratory: bilateral: CTA, negative: diminished, dullness, rales, rhonchi, wheezing - Cardiovascular Rhythm: regular Heart sounds: normal: S1, S2 Abnormal Heart Sounds: no systolic murmur, no diastolic murmur ankle Peripheral Edema: bilateral: None - Gastrointestinal General gastrointestinal: no distended, normal bowel sounds, soft - Integumentary Integumentary: no calor, no pale, no rash - Neurologic Neurologic: CNII-XII intact - Musculoskeletal Musculoskeletal: gait normal, strength equal bilaterally - Psychiatric Psychiatric: A&O x's 3, appropriate affect, intact judgment & insight - Labs CBC & Chem 7: 10/26/17 05:59 10/26/17 05:59 Labs: Abnormal Lab Results - Last 24 Hours (Table) 10/25/17 Range/Units 06:01 Glucose 104 H (74-99) mg/dL AST 61 H (17-59) U/L Assessment and Plan Plan: #1 non-ST elevated myocardial infarction status post stent of the mid right coronary artery. Patient has history of myocardial infarction in 2012 which was managed medically. No cardiac stent was placed at that time. #2 hypertension continue home medications including metoprolol 25 mg twice a day daily, Norvasc, hydrochlorothiazide, lisinopril and Imdur #3 hyperlipidemia continue atorvastatin 40 mg daily #4 history of ventricular tachycardia Sees Dr. Baker as outpatient. No recurrent episodes since then #5 obstructive sleep apnea, patient is to use his own CPAP at night #6 GERD/GI prophylaxis continue Prilosec 20 mg daily #7 CODE STATUS full code #8 patient name need to be inpatient for 1-2 midnights Run of nonsustained ventricular tachycardia. DVT prophylaxis with heparin drip Discharge plan: Return home Impression and plan of care have been directed as dictated by the signing physician. Shamika Natarajan nurse practitioner acting as scribe for signing physician.
--- NOTE | 2017-10-25 14:28 | P.PN ---
Subjective Progress Note Date: 10/25/17 Is a 62-year-old gentleman with history of hypertension, hyperlipidemia, nonsmoker, nondiabetic, sleep apnea, ischemic cardiomyopathy, according to the patient, he presented to the hospital in 2012 with myocardial infarction, he states that he had ventricular tachycardia at that time requiring defibrillation. He follows with Dr. Baker in the office. Cardiac catheterization performed at that time revealed mild to moderate triple-vessel coronary artery disease. Most recent stress test was performed in August 2016 which revealed a fixed inferior apical defect. Patient presents to the hospital with symptoms of chest discomfort which she describes as a heavy pressure sensation. He states he has been noticing these symptoms off and on for approximately one week. On Tuesday he had symptoms for the entire day off and on, went to synagogue on Tuesday and became extremely diaphoretic and felt as though he may pass out. This reminded him of what he had at the time of his [place] for this reason he came to the emergency room for further evaluation.EkG on arrival here showed a normal sinus rhythm with mild ST elevation in the inferior leads. X-ray revealed COPD. EKG showed normal sinus rhythm with mild improvement in the ST-T wave changes in the inferior leads. She 133/80, heart rate in the 70s, 98% on room air, patient is afebrile. CBC normal, d-dimer 0.5, sodium 143, potassium 4.1, and 103, CO2 31, BUN 12, creatinine 0.8. Magnesium level I.8. Troponins on presentation here 2.3, subsequent troponins 13 and 12. Cholesterol 132, triglycerides 51, LDL 77, HDL 45. Pataient was initiated on IV heparin on presentation here, at present he is currently chest pain-free. 10/25/2017 Patient was taken to the cardiac catheterization lab yesterday by Dr. Baker where he underwent successful stenting of the mid right coronary artery with reduction of stenosis from 99-0%. He was seen and examined this morning, feels well, denies any chest pain or difficulty in breathing. He's been up ambulating without any difficulty. Patient did have a run of nonsustained ventricular tachycardia on the monitor, currently remaining in normal sinus rhythm this morning. CBC is normal, sodium 141, potassium 4.3, BUN 13, creatinine 0.9. Patient has been encouraged to be up ambulating today plan for discharge home in the morning if stable. Objective - Vital Signs Vital signs: Vital Signs Temp 97.4 F L 10/25/17 12:00 Pulse 65 10/25/17 12:00 Resp 18 10/25/17 12:00 BP 127/83 10/25/17 12:00 Pulse Ox 94 L 10/25/17 12:00 Intake & Output 10/24/17 10/25/17 10/25/17 18:59 06:59 18:59 Intake Total 2191.150 3600 480 Balance 3120.532 2502 480 Weight 108.3 kg 107.1 kg Intake: IV 779.1 Intake, IV Titration 655.034 9600 Amount Heparin Sod,Pork in 0.45% 20.689 NaCl 25,000 unit In 0.45 % NaCl 1 500ml.bag @ 9 UNITS/KG/HR 19.59 mls/hr IV .Q24H [facility] Rx#: [id number] Sodium Chloride 0.9% 1, 1000 000 ml @ 100 mls/hr IV . Q10H [facility] Rx#:[id number] Sodium Chloride 0.9% 1, 300 000 ml In Empty Bag 1 bag @ 1 ML/KG/HR 108.3 mls/ hr IV .Q9H15M [facility] Rx#: [id number] Oral 960 480 Other: Voiding Method Urinal Urinal Urinal # Voids 3 - Exam PHYSICAL EXAMINATION: HEENT: Head is atraumatic, normocephalic. Pupils equal, round. Neck is supple. There is no elevated jugular venous pressure. HEART EXAMINATION: Heart S1 and S2 1 systolic ejection murmur is heard. CHEST EXAMINATION: Lungs are clear to auscultation and precussion. No chest wall tenderness is noted on palpation or with deep breathing. ABDOMEN: Soft, nontender. Bowel sounds are heard. No organomegaly noted. EXTREMITIES: 2+ peripheral pulses with no evidence of peripheral edema and no calf tenderness noted. Right radial site clean and dry, good distal pulse. NEUROLOGIC patient is awake, alert and oriented -3. . - Labs CBC & Chem 7: 10/25/17 06:01 10/25/17 06:01 Labs: Abnormal Lab Results - Last 24 Hours (Table) 10/25/17 Range/Units 06:01 Glucose 104 H (74-99) mg/dL AST 61 H (17-59) U/L Assessment and Plan Plan: Assessment and plan #1 non-ST elevation myocardial infarction, status post successful stenting of the mid right coronary artery #2 history of prior myocardial infarction in 2012, cardiac catheterization at that time revealed mild to moderate triple-vessel coronary artery disease, patient also had ventricular tachycardia requiring defibrillation at that presentation. #3 hypertension #4 ischemic cardiomyopathy Number 5 hyperlipidemia #6 sleep apnea Plan We will continue the patient on his current medications. Continue to observe for 24 hours and plan for discharge home in the morning if stable. DNP note has been reviewed, I agree with a documented findings and plan of care. Patient was seen and examined.
[2017-10-25] MEDS: amLODIPine 5 MG TAB PO SCH (20:57)
[2017-10-25] MEDS ORDERED: ATORVASTATIN 80 MG TAB PO SCH (21:00)
[2017-10-26 04:57] VITALS: PULSE 73
[2017-10-26 06:30] LABS: ALT 48 U/L (21-72); AST 42 U/L (17-59); Albumin 3.9 g/dL (3.5-5.0); Alkaline Phosphatase 69 U/L (38-126); Anion Gap 11 mmol/L; Blood Urea Nitrogen 14 mg/dL (9-20); Carbon Dioxide 24 mmol/L (22-30); Chloride 102 mmol/L (98-107); Glucose 109 mg/dL (74-99); Potassium 4.1 mmol/L (3.5-5.1); Sodium 137 mmol/L (137-145); Total Bilirubin 0.6 mg/dL (0.2-1.3); Total Protein 6.9 g/dL (6.3-8.2)
[2017-10-26] MEDS: PANTOPRAZOLE 40 MG TABLET PO SCH (06:30)
[2017-10-26 06:31] LABS: Basophils # (A) 0.1 k/uL (0-0.2); Basophils % (A) 1 %; Eosinophils # (A) 0.2 k/uL (0-0.7); Eosinophils % (A) 3 %; HCT 43.4 % (39.0-53.0); HGB 14.5 gm/dL (13.0-17.5); Lymphocytes # (A) 1.4 k/uL (1.0-4.8); Lymphocytes % (A) 21 %; MCH 29.9 pg (25.0-35.0); MCHC 33.4 g/dL (31.0-37.0); MCV 89.5 fL (80.0-100.0); Mean Platelet Volume 7.4; Monocytes # (A) 0.6 k/uL (0-1.0); Monocytes % (A) 9 %; Neutrophils # (A) 4.2 k/uL (1.3-7.7); Neutrophils % (A) 62 %; Platelet Count 194 k/uL (150-450); RBC 4.85 m/uL (4.30-5.90); WBC 6.8 k/uL (3.8-10.6)
[2017-10-26] MEDS: LOSARTAN-HCTZ 50-12.5 MG 1 EACH TAB PO SCH (08:18)
[2017-10-26] MEDS: ASPIRIN 81 MG PO SCH (08:19)
[2017-10-26] MEDS: METOPROLOL TARTRATE 25 MG TAB PO SCH (08:19)
[2017-10-26] MEDS: MULTIVITAMINS, THERA 1 EACH TAB PO SCH (08:19)
[2017-10-26] MEDS: EZETIMIBE 10 MG TAB PO SCH (08:19)
[2017-10-26] MEDS: PRASUGREL 10 MG TAB PO SCH (08:19)
[2017-10-26] MEDS: CITALOPRAM HYDROBROMIDE 20 MG TAB PO SCH (08:19)
[2017-10-26] MEDS: SODIUM CHLORIDE 0.9% 500 ML IV SCH (08:20)
[2017-10-26 09:50] VITALS: BP 139/79; TEMP 97.1
--- NOTE | 2017-10-26 12:49 | P.PN ---
Subjective Progress Note Date: 10/26/17 This is a 62-year-old gentleman with history of hypertension, hyperlipidemia, nonsmoker, nondiabetic, sleep apnea, ischemic cardiomyopathy, according to the patient, he presented to the hospital in 2012 with myocardial infarction, he states that he had ventricular tachycardia at that time requiring defibrillation. He follows with Dr. Baker in the office. Cardiac catheterization performed at that time revealed mild to moderate triple-vessel coronary artery disease. Most recent stress test was performed in August 2016 which revealed a fixed inferior apical defect. Patient presents to the hospital with symptoms of chest discomfort which she describes as a heavy pressure sensation. He states he has been noticing these symptoms off and on for approximately one week. On Tuesday he had symptoms for the entire day off and on, went to [employer] on Tuesday and became extremely diaphoretic and felt as though he may pass out. This reminded him of what he had at the time of his [place] for this reason he came to the emergency room for further evaluation.EkG on arrival here showed a normal sinus rhythm with mild ST elevation in the inferior leads. X-ray revealed COPD. EKG showed normal sinus rhythm with mild improvement in the ST-T wave changes in the inferior leads. She 133/80, heart rate in the 70s, 98% on room air, patient is afebrile. CBC normal, d-dimer 0.5, sodium 143, potassium 4.1, and 103, CO2 31, BUN 12, creatinine 0.8. Magnesium level I.8. Troponins on presentation here 2.3, subsequent troponins 13 and 12. Cholesterol 132, triglycerides 51, LDL 77, HDL 45. Pataient was initiated on IV heparin on presentation here, at present he is currently chest pain-free. 10/25/2017 Patient was taken to the cardiac catheterization lab yesterday by Dr. Baker where he underwent successful stenting of the mid right coronary artery with reduction of stenosis from 99-0%. He was seen and examined this morning, feels well, denies any chest pain or difficulty in breathing. He's been up ambulating without any difficulty. Patient did have a run of nonsustained ventricular tachycardia on the monitor, currently remaining in normal sinus rhythm this morning. CBC is normal, sodium 141, potassium 4.3, BUN 13, creatinine 0.9. Patient has been encouraged to be up ambulating today plan for discharge home in the morning if stable. 10/27/2017 Patient was seen and examined this morning, up ambulating in the johnson without any difficulty. No further ectopy noted on the monitor. He is hemodynamically stable. Objective - Vital Signs Vital signs: Vital Signs Temp 97.1 F L 10/26/17 08:00 Pulse 73 10/26/17 08:00 Resp 18 10/26/17 08:00 BP 139/79 10/26/17 08:00 Pulse Ox 95 10/26/17 08:00 Intake & Output 10/25/17 10/26/17 10/26/17 18:59 06:59 18:59 Intake Total 720 300 240 Output Total 1000 300 Balance -280 0 240 Weight 107.3 kg Intake: Oral 720 300 240 Output: Urine 1000 300 Other: Voiding Method Urinal Urinal Urinal # Voids 1 - Exam PHYSICAL EXAMINATION: HEENT: Head is atraumatic, normocephalic. Pupils equal, round. Neck is supple. There is no elevated jugular venous pressure. HEART EXAMINATION: Heart S1 and S2 1 systolic ejection murmur is heard. CHEST EXAMINATION: Lungs are clear to auscultation and precussion. No chest wall tenderness is noted on palpation or with deep breathing. ABDOMEN: Soft, nontender. Bowel sounds are heard. No organomegaly noted. EXTREMITIES: 2+ peripheral pulses with no evidence of peripheral edema and no calf tenderness noted. Right radial site clean and dry, good distal pulse. NEUROLOGIC patient is awake, alert and oriented -3. . - Labs CBC & Chem 7: 10/26/17 05:59 10/26/17 05:59 Labs: Abnormal Lab Results - Last 24 Hours (Table) 10/26/17 Range/Units 05:59 Glucose 109 H (74-99) mg/dL Assessment and Plan Plan: Assessment and plan #1 non-ST elevation myocardial infarction, status post successful stenting of the mid right coronary artery #2 history of prior myocardial infarction in 2012, cardiac catheterization at that time revealed mild to moderate triple-vessel coronary artery disease, patient also had ventricular tachycardia requiring defibrillation at that presentation. #3 hypertension #4 ischemic cardiomyopathy Number 5 hyperlipidemia #6 sleep apnea Plan Patient may be able to be discharged home today. We will make him a follow-up appointment with Dr. Baker in the office post discharge. Patient has been educated regarding his medications, diet, activity, and follow-up appointment. DNP note has been reviewed, I agree with a documented findings and plan of care. Patient was seen and examined.
== END 2017-10-26 10:15 | disposition home or self-care (01) | DRG 247 ==
LOC: EC 10:02 → 6SEL 11:17
PROVIDERS: ADMIT Internal Medicine Geriatric Medicine; ATTEND Internal Medicine Geriatric Medicine
PROC: B2111ZZ Fluoroscopy of Multiple Coronary Arteries using Low Osmolar Contrast (ICD-10-PCS; 2017-10-24)
PROC: 4A023N7 Measurement of Cardiac Sampling and Pressure, Left Heart, Percutaneous Approach (ICD-10-PCS; principal; 2017-10-24 15:35)
PROC: 027034Z Dilation of Coronary Artery, One Artery with Drug-eluting Intraluminal Device, Percutaneous Approach (ICD-10-PCS; 2017-10-24 15:35)
DX: I21.4 Non-ST elevation (NSTEMI) myocardial infarction (principal); I47.2 Ventricular tachycardia; I25.10 Atherosclerotic heart disease of native coronary artery without angina pectoris; E78.5 Hyperlipidemia, unspecified; I10 Essential (primary) hypertension; G47.33 Obstructive sleep apnea (adult) (pediatric); I08.1 Rheumatic disorders of both mitral and tricuspid valves; K21.9 Gastro-esophageal reflux disease without esophagitis; M19.90 Unspecified osteoarthritis, unspecified site; I25.5 Ischemic cardiomyopathy; Z86.79 Personal history of other diseases of the circulatory system; Z82.49 Family history of ischemic heart disease and other diseases of the circulatory system; Z79.82 Long term (current) use of aspirin; Z79.899 Other long term (current) drug therapy; Z87.891 Personal history of nicotine dependence; Z80.49 Family history of malignant neoplasm of other genital organs; I25.2 Old myocardial infarction; Z87.442 Personal history of urinary calculi; Z90.89 Acquired absence of other organs; Z80.42 Family history of malignant neoplasm of prostate
CPT/HCPCS: 36415; 71046; 80053; 80061; 82550; 82553; 83690; 83735; 83880; 84484; 85025; 85347; 85379; 85610; 85730; 93005; 93306; 93454; 96365; 96366; 96376; 99291

== ENCOUNTER → 2018-04-11 | Outpatient (CLI) | payer BC ==
--- NOTE | 2018-04-11 18:01 | CONS ---
CONSULTATION REASON FOR CONSULTATION: Sleep apnea. This is a 62-year-old male patient diagnosed having obstructive sleep apnea back in 2005, and the patient has been on CPAP therapy since. Over the past 12 years the patient has been using the [employer] Respironic unit at the pressure of 8 cm of water. Recently his machine has been acting up. He is snoring through his CPAP machine. He is not seeing the same benefit that he used to see in the past, and he has been feeling much more tired and sleepy during the day. He is going to bed around 9:30 p.m., waking up at 4:45 a.m. in the morning. He has been told that he is snoring and he stops breathing even while on the CPAP machine, and he is using a nose mask. For that reason he came in for re-evaluation. The patient had his original sleep study at [facility]. He also has history of ADD and he takes Ritalin 10 mg p.o. t.i.d. He is known to have coronary artery disease and previous myocardial infarction. No recent weight gain or weight loss. No history of any congestive heart failure. No restlessness in the lower extremities. Fed[place] Score is 7. PAST MEDICAL HISTORY: 1. Obstructive sleep apnea, currently on CPAP with a pressure of 8. 2. Hyperlipidemia. 3. Hypertension. 4. Coronary artery disease with previous [place]. 5. Acid reflux. 6. ADD. PAST SURGICAL HISTORY: 1. Right ankle surgery in 1985. 2. Foot surgery x2 in 1989 and 1990. 3. Cardiac catheterization in May of 2013. This was repeated in October of 2017 and the patient has a coronary stent in place. SOCIAL HISTORY: The patient is a nonsmoker. No history of alcoholism. No IV drugs. FAMILY HISTORY: Negative for sleep apnea. OUTPATIENT MEDICATION LIST: 1. Lipitor 80 mg p.o. daily. 2. Citalopram 20 mg p.o. daily. 3. Losartan/hydrochlorothiazide 100/25 one tablet a day. 4. Ritalin 10 mg t.i.d. 5. Prasugrel 10 mg p.o. daily. 6. Metoprolol 50 mg p.o. per day. 7. Zetia 10 mg p.o. daily. 8. Norvasc 5 mg p.o. daily. 9. Omeprazole 20 mg p.o. daily. REVIEW OF SYSTEMS: Twelve-point review of systems was done. No history of insomnia. No history of nocturia. No history of any grinding of the teeth. No sleepwalking. No anxiety or panic attacks. No palpitation. No heartburn. No sleeptalking. No restlessness in the lower extremities. No sweating. No anxiety. No claustrophobia. No sexual dysfunction. No problems with memory or concentration. No sleep paralysis, hallucinations or cataplexy. No history of any motor vehicle accident because of feeling drowsy or sleepy. PHYSICAL EXAMINATION: BP is 133/72, pulse 58, respirations 16, temperature 97.9, saturation 96% on room air. Weight is 236. Height is 5 feet 11 inches. Neck size is 15-1/2 inches. GENERAL APPEARANCE: Calm, comfortable. No acute distress. Head is atraumatic, normocephalic. NECK: Supple. There is no JVD. No goiter or neck masses. Mallampati class IV. LUNGS: Clear to auscultation. Heart sounds are regular rate and rhythm. Normal S1, S2. No S3, S4. No murmurs. ABDOMEN: Soft, nontender. No organomegaly. EXTREMITIES: No edema. No cyanosis or clubbing. SKIN: Negative for any wounds or ulceration. NEUROLOGIC: Alert and oriented x3. No focal neurological deficits. IMPRESSION: 1. Symptomatic obstructive sleep apnea. The patient has been on CPAP therapy at a pressure of 8 for more than 12 years. His treatment has been suboptimal. His machine is non-functioning at this point and the patient will need re-evaluation. 2. Coronary artery disease with previous myocardial infarction. 3. Hypertension. 4. Hyperlipidemia. 5. Attention deficit disorder, currently on Ritalin. 6. Acid reflux. PLAN: 1. Encourage weight loss. 2. Implement good sleep hygiene measures. 3. Tight control and followup on his cardiovascular disease. 4. Proceed with a split night study. This will be helpful to re-establish the severity of his obstructive sleep apnea and offer this patient CPAP therapy within the same setting, and hopefully we will update his mask interface, as the patient has been using an older-generation nose mask. 5. We will continue to follow. MMODL / IJN: [id number] /
== END | disposition home or self-care (01) ==
LOC: SLEEP 16:14
PROVIDERS: ATTEND Internal Medicine Critical Care Medicine
DX: G47.33 Obstructive sleep apnea (adult) (pediatric) (principal); I25.10 Atherosclerotic heart disease of native coronary artery without angina pectoris; K21.9 Gastro-esophageal reflux disease without esophagitis; I25.2 Old myocardial infarction; I10 Essential (primary) hypertension; E78.5 Hyperlipidemia, unspecified; F98.8 Other specified behavioral and emotional disorders with onset usually occurring in childhood and adolescence; Z79.899 Other long term (current) drug therapy; Z99.89 Dependence on other enabling machines and devices; Z98.890 Other specified postprocedural states; Z95.5 Presence of coronary angioplasty implant and graft
CPT/HCPCS: 99211

== ENCOUNTER → 2018-08-08 | Outpatient (CLI) | payer BC ==
--- NOTE | 2018-08-08 19:33 | PN ---
PROGRESS NOTE 60-year-old male patient with symptomatic obstructive sleep apnea, AHI of 6.4, coming in for a compliancy check. The patient was offered CPAP therapy and the patient is currently on a CPAP pressure of 8 cm of water. He is using his CPAP and he is benefiting from the treatment. He has no specific complaints. At times, he wakes up with dry mouth and he wants to make sure this problem goes away. Based on the compliance data the patient has been averaging more than 4 hours of CPAP use. 87% of the time. His average CPAP is 5 hours and 40 minutes. His AHI is down to 3.9, no central events. He is using AirFit F20 full face mask medium size. His humidity level is at 4. He has regular tubing. REVIEW OF SYSTEMS: Full review of system was done. Positive findings are mentioned above history of present illness. No interval weight gain or weight loss. No chest pain. No angina, no palpitations. No shortness of breath. No heartburn at nighttime. No anxiety or depression at this point in time. PHYSICAL EXAMINATION: BP is 137/80, pulse 64, respirations 16, temperature 97.8, weight is 238 and Faxon score is at 6, saturation 95% on room air. GENERAL APPEARANCE: Calm, comfortable. Head is atraumatic, normocephalic. NECK: Supple. There is no JVD. No goiter or neck mass. LUNGS: Diminished otherwise clear. HEART: Sounds are regular. Normal S1, S2. No murmurs. ABDOMEN: Soft, nontender. No organomegaly. EXTREMITIES: No edema. No cyanosis or clubbing. NEUROLOGIC: A and O x3. No focal neurological deficits. PSYCHIATRIC: Negative for anxiety or depression. IMPRESSION: 1. Symptomatic obstructive sleep apnea, AHI of 6.4, worse during REM. Currently on CPAP pressure of 8 with excellent response and compliance. 2. Coronary artery disease. 3. Hyperlipidemia. 4. Hypertension. 5. Attention deficit disorder on Ritalin. PLAN: 1. The patient was educated on appropriate use and placement of his mask which is an AirFit F20 full face. 2. We will offer him heated humidity. 3. The leak factor was quite high and I think this is essentially related to the mask placement problem. We will make the appropriate adjustment in his mask interface and the patient will contact me back if the oral dryness continues. I think while achieving better seal and offering this patient heated humidity through a heated tubing he should not have anymore oral dryness. Anticipate full recovery. We will continue to follow. MMODL / IJN: [id number] /
== END | disposition home or self-care (01) ==
LOC: SLEEP 16:41
PROVIDERS: ATTEND Internal Medicine Critical Care Medicine
DX: G47.33 Obstructive sleep apnea (adult) (pediatric) (principal); I25.10 Atherosclerotic heart disease of native coronary artery without angina pectoris; E78.5 Hyperlipidemia, unspecified; I10 Essential (primary) hypertension; F98.8 Other specified behavioral and emotional disorders with onset usually occurring in childhood and adolescence; Z79.899 Other long term (current) drug therapy; Z99.89 Dependence on other enabling machines and devices

== ENCOUNTER → 2019-07-17 | Outpatient (CLI) | payer BC ==
--- NOTE | 2019-07-17 18:32 | PN ---
PROGRESS NOTE 64-year-old male patient coming in for annual check regarding obstructive sleep apnea. The patient has mild DAIN with an AHI of 6.4, and currently is on CPAP pressure of 8. Main issue remains the leak around the mask. I noted that the patient is using a medium-sized AirFit F20 full face mask and I am going to update his mask to a large- sized. Based on the compliance data, the patient's leak in 72 L/minutes. He is very compliant and he is wearing a CPAP machine every night on an average of 6.2 hours per night and the patient's CPAP use for more than 4 hours is above 90%. His AHI is down to 3.7. He is doing well. He is alert and refreshed during the day. Humidity levels are at 4. He has heated tubing. No major hypersomnia or sleepiness during the day. REVIEW OF SYSTEMS: Fourteen-point review of system was done. Positive findings are mentioned above in history of present illness. The patient has no significant change in his body weight. His weight is around 236 which is 2 pounds less compared to last year. No snoring while on CPAP therapy. No altered mentation. No headache, shortness of breath, chest pain, heartburn or any swelling in lower extremities. No new onset comorbidities such as cardiovascular disease. PHYSICAL EXAMINATION: BP is 151/71, pulse 64, respirations 16, temperature 97.9. Saturation 95% on room air. Height is 6 feet, 0 inches, weight is 236, BMI 32. GENERAL APPEARANCE: Calm, comfortable. Head is atraumatic, normocephalic. NECK: Supple. No JVD. No goiter or neck mass. Lungs diminished, otherwise clear. HEART: Heart sounds are regular rate and rhythm. Normal S1, S2. No S3. No murmurs. ABDOMEN: Soft, nontender. No organomegaly. EXTREMITIES: No edema. No cyanosis or clubbing. NEUROLOGIC: Alert and oriented x3. No focal neurological deficits. PSYCHIATRIC: Negative for anxiety or depression. IMPRESSION: 1. Obstructive sleep apnea with an AHI of 6.4, currently on CPAP with a pressure of 8 cm of water. Treatment successful for now. 2. Coronary artery disease. 3. Hyperlipidemia. 4. Hypertension. 5. Attention-deficit disorder on Ritalin. PLAN: 1. Update this patient's mask to a large size AirFit F20. 2. Keep same pressure setting. 3. Monitor leaks and compliancy. 4. Encourage weight loss. 5. See me back in a year's time. 6. Treatment is successful otherwise. MMODL / IJN: [id number] /
== END | disposition home or self-care (01) ==
LOC: SLEEP 16:27
PROVIDERS: ATTEND Internal Medicine Critical Care Medicine
DX: G47.33 Obstructive sleep apnea (adult) (pediatric) (principal); I25.10 Atherosclerotic heart disease of native coronary artery without angina pectoris; E78.5 Hyperlipidemia, unspecified; I10 Essential (primary) hypertension; F90.9 Attention-deficit hyperactivity disorder, unspecified type; Z99.89 Dependence on other enabling machines and devices; Z79.899 Other long term (current) drug therapy

== ENCOUNTER 2019-09-09 13:59 | Inpatient (IN) | payer BC ==
--- NOTE | 2019-09-09 14:31 | ED ---
Chest Pain HPI - General Chief Complaint: Chest Pain Stated Complaint: Chest pain Time Seen by Provider: 09/09/19 14:09 Source: patient Mode of arrival: ambulatory Limitations: no limitations - History of Present Illness Initial Comments: This is a 64-year-old male with a history of heart disease 2 MIs in the past 2012 1 2017 with a single stent he states on the right side of his heart who had the onset around 12:30 today of chest pain. No shortness of breath no radiation of the pain no sweats he states the pain was very severe at first that was 6- 7/10 severity he came off several times currently it's 0. He states it feels identical to his previous cardiac events. MD Complaint: chest pain - Related Data Home Medications Medication Instructions Recorded Confirmed Aspirin 81 mg PO DAILY 10/14/16 10/23/17 Citalopram Hydrobromide [CeleXA] 20 mg PO DAILY 10/14/16 10/23/17 Losartan/Hydrochlorothiazide 1 tab PO DAILY 10/14/16 10/23/17 [Losartan-Hctz 100-25 mg Tab] Methylphenidate HCl [Ritalin] 10 mg PO AC-TID 10/14/16 10/23/17 Metoprolol Succinate (ER) [Toprol 50 mg PO DAILY 10/14/16 10/23/17 XL] Multivitamin [Men's Multi-Vitamin] 1 tab PO DAILY 10/14/16 10/23/17 amLODIPine BESYLATE [Norvasc] 5 mg PO HS 10/14/16 10/23/17 Omeprazole 20 mg PO DAILY 10/23/17 10/23/17 Previous Rx's Medication Instructions Recorded Atorvastatin [Lipitor] 80 mg PO HS #30 tab 10/25/17 Ezetimibe [Zetia] 10 mg PO DAILY #30 tab 10/25/17 Nitroglycerin Sl Tabs [Nitrostat] 0.4 mg SUBLINGUAL Q5M PRN #25 tab 10/25/17 Prasugrel [Effient] 10 mg PO DAILY #30 tab 10/25/17 Allergies Allergy/AdvReac Type Severity Reaction Status Date / Time No Known Allergies Allergy Verified 10/23/17 10:53 Review of Systems ROS Statement: Those systems with pertinent positive or pertinent negative responses have been documented in the HPI. ROS Other: All systems not noted in ROS Statement are negative. EKG Findings - EKG Results: EKG: interpreted by ELIUD (Sinus rhythm of 64 [place] interval 168 QRS duration 104 QT since QTC 436/[address]-T wave changes) Past Medical History Past Medical History: Hyperlipidemia, Hypertension, Myocardial Infarction (SD), Osteoarthritis (OA), Sleep Apnea/CPAP/BIPAP Additional Past Medical History / Comment(s): kidney stones Last Myocardial Infarction Date:: 2012 History of Any Multi-Drug Resistant Organisms: None Reported Past Surgical History: Heart Catheterization, Orthopedic Surgery, Tonsillectomy Additional Past Surgical History / Comment(s): R foot & R ankle surgery, colonos copy. Past Anesthesia/Blood Transfusion Reactions: No Reported Reaction Past Psychological History: ADD/ADHD, Depression Smoking Status: Former smoker - Past Family History Mother Family Medical History: Cancer Additional Family Medical History / Comment(s): Cervical Father Family Medical History: Cancer Additional Family Medical History / Comment(s): Prostate at the age of 70 Brother(s) Family Medical History: Coronary Artery Disease (CAD) ( of heart attack at the age 60 , started having heart attack at the age of 50 ) General Exam - General Exam Comments Initial Comments: This is a well-developed well-nourished awake alert oriented 3 male Limitations: no limitations General appearance: alert, in no apparent distress Head exam: Present: atraumatic, normocephalic, normal inspection Eye exam: Present: normal appearance, PERRL, EOMI. Absent: scleral icterus, conjunctival injection, periorbital swelling ENT exam: Present: normal exam, mucous membranes moist Neck exam: Present: normal inspection. Absent: tenderness, meningismus, lymphadenopathy Respiratory exam: Present: normal lung sounds bilaterally. Absent: respiratory distress, wheezes, rales, rhonchi, stridor, chest wall tenderness Cardiovascular Exam: Present: regular rate, normal rhythm, normal heart sounds. Absent: systolic murmur, diastolic murmur, rubs, gallop, clicks GI/Abdominal exam: Present: soft, normal bowel sounds. Absent: distended, tenderness, guarding, rebound, rigid Extremities exam: Present: normal inspection, full ROM, normal capillary refill. Absent: tenderness, pedal edema, joint swelling, calf tenderness Back exam: Present: normal inspection Neurological exam: Present: alert, oriented X3, CN II-XII intact Psychiatric exam: Present: normal affect, normal mood Skin exam: Present: warm, dry, intact, normal color. Absent: rash Course Vital Signs 09/09/19 09/09/19 09/09/19 14:07 14:32 15:00 Temperature 98.3 F Pulse Rate 60 59 L 56 L Respiratory 18 16 16 Rate Blood Pressure 164/92 132/82 O2 Sat by Pulse 97 96 95 Oximetry 09/09/19 15:30 Temperature Pulse Rate 52 L Respiratory 16 Rate Blood Pressure 126/82 O2 Sat by Pulse 96 Oximetry Chest Pain MDM - MDM I did review the imaging and report no acute findings. I did discuss the findings with the patient and his . Patient had no further chest pain the troponin however is elevated. I did discuss the case with Dr. Hdz patient will be admitted he will be placed on IV heparin and nitroglycerin to be used when necessary Dr. Baker will be consulted Critical Care Time Critical Care Time: Yes Critical Care Time: 31 minutes of critical care time which includes initial presentation with history physical labs x-rays several reevaluation the patient discussed with patient family regarding findings discussion with the admitting physician admission orders review of old charting was available and documentation of the above Disposition Clinical Impression: Unstable angina pectoris, Chest pain Disposition: ADMITTED IP TO THIS [facility] Condition: Fair Referrals: Alireza Wan MD [Primary Care Provider] - 1-2 days
[2019-09-09 14:52] LABS: Basophils % (A) 1 %; Eosinophils # (A) 0.2 k/uL (0-0.7); Eosinophils % (A) 2 %; HCT 40.9 % (39.0-53.0); HGB 14.3 gm/dL (13.0-17.5); Lymphocytes # (A) 2.8 k/uL (1.0-4.8); Lymphocytes % (A) 28 %; MCH 31.2 pg (25.0-35.0); MCV 89.1 fL (80.0-100.0); Mean Platelet Volume 8.2; Monocytes # (A) 0.5 k/uL (0-1.0); Monocytes % (A) 5 %; Neutrophils % (A) 60 %; Platelet Count 248 k/uL (150-450); RBC 4.59 m/uL (4.30-5.90); RDW 13.1 % (11.5-15.5); WBC 9.9 k/uL (3.8-10.6)
[2019-09-09 15:02] LABS: ALT 35 U/L (21-72); AST 36 U/L (17-59); African American GFR (CKD) >90 (>60 ml/min/1.73 sqM); Albumin 4.3 g/dL (3.5-5.0); Alkaline Phosphatase 77 U/L (38-126); Anion Gap 8 mmol/L; Blood Urea Nitrogen 20 mg/dL (9-20); Calcium 9.3 mg/dL (8.4-10.2); Carbon Dioxide 26 mmol/L (22-30); Chloride 106 mmol/L (98-107); Creatine Kinase 182 U/L (55-170); Glucose 99 mg/dL (74-99); Magnesium 1.7 mg/dL (1.6-2.3); Non-African American GFR(CKD) >90 (>60 ml/min/1.73 sqM); Sodium 140 mmol/L (137-145); Total Bilirubin 0.6 mg/dL (0.2-1.3); Total Protein 7.6 g/dL (6.3-8.2)
[2019-09-09 15:12] LABS: D-Dimer 0.46 mg/L FEU (<0.60); INR 0.9 (<1.2); Prothrombin Time 10.2 sec (9.0-12.0)
[2019-09-09] MEDS ORDERED: HEPARIN SODIUM,PORCINE 5,000 UNIT/ML 1 ML VIAL IV ONE (16:08)
[2019-09-09] MEDS ORDERED: NITROGLYCERIN SL TABS 0.4 MG TAB SUBLINGUAL PRN (16:08)
[2019-09-09] MEDS ORDERED: SODIUM CHLORIDE 0.9% 1,000 ML IV SCH (16:15)
[2019-09-09] MEDS ORDERED: HEPARIN SOD,PORK IN 0.45% NACL 25,000 UNIT in 0.45% NACL 1 250ML.BAG IV SCH (16:15)
--- NOTE | 2019-09-09 16:24 | XR ---
EXAMINATION TYPE: XR chest 2V DATE OF EXAM: 09/09/2019 COMPARISON: Chest x-ray 10/23/2017 HISTORY: Chest pain TECHNIQUE: Frontal and lateral views of the chest are obtained. FINDINGS/IMPRESSION: Cardiac silhouette is within normal limits of size. No pulmonary vascular congestion. The lungs are c lear. No pleural effusion or pneumothorax. Lucency under the medial left hemidiaphragm has a rugated appearance and is favored to represent stomach bubble. Osseous structures are grossly intact.
[2019-09-09] MEDS: amLODIPine 5 MG TAB PO SCH (19:17)
[2019-09-09] MEDS: NITROGLYCERIN OINT 1 INCH/GM PACKET TOPICAL SCH (19:17)
[2019-09-09] MEDS: ATORVASTATIN 80 MG TAB PO SCH (23:02)
[2019-09-09] MEDS: METHYLPHENIDATE HCL 10 MG TAB PO SCH (23:04)
[2019-09-10] MEDS: NITROGLYCERIN OINT 1 INCH/GM PACKET TOPICAL SCH ×2 (00:10→06:49)
[2019-09-10 02:30] LABS: Cholesterol 92 mg/dL (<200); HDL Cholesterol 36 mg/dL (40-60); LDL Cholesterol,Calculated 28 mg/dL (0-99); Triglycerides 142 mg/dL (<150)
[2019-09-10] MEDS: METHYLPHENIDATE HCL 10 MG TAB PO SCH ×3 (06:49→18:27)
[2019-09-10] MEDS: PANTOPRAZOLE 40 MG TABLET PO SCH (06:49)
[2019-09-10] MEDS: METOPROLOL SUCCINATE (ER) 50 MG TAB.ER.24H PO SCH (08:00)
[2019-09-10] MEDS: CITALOPRAM HYDROBROMIDE 20 MG TAB PO SCH (08:00)
[2019-09-10] MEDS ORDERED: ASPIRIN 325 MG TAB PO SCH (09:00)
[2019-09-10] MEDS ORDERED: ALPRAZolam 0.25 MG TAB PO PRN (09:47)
[2019-09-10] MEDS ORDERED: SODIUM CHLORIDE 0.9% 1,000 ML in EMPTY BAG 1 BAG IV ONE (09:47)
[2019-09-10] MEDS ORDERED: ATORVASTATIN 80 MG TAB PO STA (09:47)
[2019-09-10] MEDS ORDERED: ASPIRIN 325 MG TAB PO STA (09:47)
[2019-09-10] MEDS ORDERED: NITROGLYCERIN SL TABS 0.4 MG TAB SUBLINGUAL PRN ×2 (09:47→12:56)
[2019-09-10] MEDS ORDERED: ALPRAZolam 0.5 MG TAB PO PRN (09:47)
[2019-09-10] MEDS: PRASUGREL 10 MG TAB PO SCH (09:51)
--- NOTE | 2019-09-10 09:55 | P.CRDCN ---
History of Present Illness Consult date: 09/10/19 Requesting physician: Balwinder Hdz Consult reason: non-Q-wave NH Chief complaint: Chest pain History of present illness: This is a pleasant 64-year-old gentleman who follows regularly with Dr. Baker in the office. He has known history of hypertension, hyperlipidemia, nonsmoker, nondiabetic, sleep apnea, ischemic cardiomyopathy, in 2012 he presented with a myocardial infarction and had ventricular tachycardia requiring defibrillation, the cath performed at that time revealed mild to moderate triple-vessel coronary artery disease. He again presented to the hospital in October 2017 at which time patient did have a non-Q-wave myocardial infarction, he underwent cardiac catheterization with subsequent stenting of the right coronary artery at that time. Patient had been on Effient for year and a half, in January of this year it was discontinued by Dr. Baker. 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 He presents to the hospital on this occasion with symptoms of midsternal chest discomfort which she describes as an ache in his chest, he states that it reminds him of what he had prior to his stent placement but much less severe. He also states that he was in the office one week ago and underwent an echocardiogram with Doppler study at that time. EKG on presentation here showed a normal sinus rhythm with no acute changes noted. Subsequent EKG performed this morning showed normal sinus rhythm with inferior Q waves, no acute changes noted. Chest x-ray shows no pulmonary vascular congestion, lungs are clear, blood pressure 116/68, heart rate in the 60s, 97% on room air. White blood cell count is normal, hemoglobin 14.3, platelet count 248. D-dimer 0.46. Sodium 140, potassium 4.0, BUN 20, creatinine 0.78. Trop onins 0.07, 0.10, 0.09. At the time of my examination this morning the patient is currently chest pain-free. Past Medical History Past Medical History: Chest Pain / Angina, CVA/TIA, Hyperlipidemia, Hypertension, Myocardial Infarction (NH), Osteoarthritis (OA), Sleep Apnea/CPAP/BIPAP Additional Past Medical History / Comment(s): kidney stones Last Myocardial Infarction Date:: 2017 History of Any Multi-Drug Resistant Organisms: None Reported Past Surgical History: Heart Catheterization, Heart Catheterization With Stent, Orthopedic Surgery, Tonsillectomy Additional Past Surgical History / Comment(s): R foot & R ankle surgery, co lonoscopy. Past Anesthesia/Blood Transfusion Reactions: No Reported Reaction Date of Last Stent Placement:: 2017 Past Psychological History: ADD/ADHD, Depression Smoking Status: Former smoker Past Alcohol Use History: None Reported Additional Past Alcohol Use History / Comment(s): Quit smoking at age 39. Smoked 2 PPD since teenage years. Past Drug Use History: Marijuana - Past Family History Mother Family Medical History: Cancer Additional Family Medical History / Comment(s): Cervical Father Family Medical History: Cancer Additional Family Medical History / Comment(s): Prostate at the age of 70 Brother(s) Family Medical History: Coronary Artery Disease (CAD) Additional Family Medical History / Comment(s): 2016 Medications and Allergies Home Medications Medication Instructions Recorded Confirmed Type Aspirin 81 mg PO DAILY 10/14/16 09/09/19 History Citalopram Hydrobromide [CeleXA] 20 mg PO DAILY 10/14/16 09/09/19 History Losartan/Hydrochlorothiazide 1 tab PO DAILY 10/14/16 09/09/19 History [Losartan-Hctz 100-25 mg Tab] Methylphenidate HCl [Ritalin] 10 mg PO TID 10/14/16 09/09/19 History Metoprolol Succinate (ER) [Toprol 50 mg PO DAILY 10/14/16 09/09/19 History XL] amLODIPine BESYLATE [Norvasc] 5 mg PO BID 10/14/16 09/09/19 History Atorvastatin [Lipitor] 80 mg PO HS #30 tab 10/25/17 09/09/19 Rx Ezetimibe [Zetia] 10 mg PO DAILY #30 tab 10/25/17 09/09/19 Rx Pantoprazole Sodium [Protonix] 40 mg PO DAILY 09/09/19 09/09/19 History Allergies Allergy/AdvReac Type Severity Reaction Status Date / Time No Known Allergies Allergy Verified 09/09/19 16:34 Physical Exam Vitals: Vital Signs Temp Pulse Pulse Resp BP BP Pulse Ox 09/10/19 08:03 98.5 F 65 16 117/68 97 09/10/19 04:00 97.4 F L 58 L 18 138/78 96 09/10/19 00:00 98.6 F 60 18 119/86 98 09/09/19 20:53 97.7 F 54 L 18 125/77 94 L 09/09/19 20:15 97.7 F 54 L 18 125/77 94 L 09/09/19 19:00 56 L 16 164/94 97 09/09/19 18:30 64 16 144/90 96 09/09/19 18:00 53 L 14 144/92 98 09/09/19 16:00 51 L 14 131/89 09/09/19 15:30 52 L 16 126/82 96 09/09/19 15:00 56 L 16 132/82 95 09/09/19 14:32 59 L 16 96 09/09/19 14:07 98.3 F 60 18 164/92 97 Intake and Output 09/09/19 09/10/19 09/10/19 22:59 06:59 14:59 Intake Total 237 69.847 Output Total 750 Balance 237 -680.153 Intake: Intake, IV Titration 69.847 Amount Heparin Sod,Pork in 0.45% 69.847 NaCl 25,000 unit In 0.45 % NaCl 1 250ml.bag @ 9.8 UNITS/KG/HR 10.002 mls/hr IV .Q24H [facility] Rx#: [id number] Oral 237 Output: Urine 750 Other: # Voids 1 1 Weight 102.058 kg 103.3 kg PHYSICAL EXAMINATION: GENERAL: 44-year-old gentleman in no acute distress at the time of my examination HEENT: Head is atraumatic, normocephalic. Pupils equal, round. Sclera anicteric. Conjunctiva are clear. Mucous membranes of the mouth are moist. Neck is supple. There is no elevated jugular venous pressure. No carotid bruit is heard. HEART EXAMINATION: Heart S1 S2 1 systolic ejection murmur is heard CHEST EXAMINATION: Lungs are clear to auscultation and precussion. No chest wall tenderness is noted on palpation or with deep breathing. ABDOMEN: Soft, nontender. Bowel sounds are heard. No organomegaly noted. EXTREMITIES: 2+ peripheral pulses with no evidence of peripheral edema and no calf tenderness noted. NEUROLOGIC patient is awake, alert and oriented 3 . . Results 09/09/19 14:30 12/08/19 14:30 Cardiac Enzymes 09/09/19 09/09/19 09/09/19 Range/Units 14:30 14:30 20:35 AST 36 (17-59) U/L Troponin I 0.070 H* 0.106 H* (0.000-0.034) ng/mL 09/10/19 Range/Units 01:51 AST (17-59) U/L Troponin I 0.097 H* (0.000-0.034) ng/mL Coagulation 09/09/19 09/10/19 09/10/19 Range/Units 14:30 01:51 05:37 PT 10.2 (9.0-12.0) sec APTT 26.0 28.0 30.0 (22.0-30.0) sec Lipids 09/10/19 Range/Units 01:51 Triglycerides 142 (<150) mg/dL Cholesterol 92 (<200) mg/dL HDL Cholesterol 36 L (40-60) mg/dL CBC 09/09/19 Range/Units 14:30 WBC 9.9 (3.8-10.6) k/uL RBC 4.59 (4.30-5.90) m/uL Hgb 14.3 (13.0-17.5) gm/dL Hct 40.9 (39.0-53.0) % Plt Count 248 (150-450) k/uL Comprehensive Metabolic Panel 09/09/19 Range/Units 14:30 Sodium 140 (137-145) mmol/L Potassium 4.0 (3.5-5.1) mmol/L Chloride 106 (98-107) mmol/L Carbon Dioxide 26 (22-30) mmol/L BUN 20 (9-20) mg/dL Creatinine 0.78 (0.66-1.25) mg/dL Glucose 99 (74-99) mg/dL Calcium 9.3 (8.4-10.2) mg/dL AST 36 (17-59) U/L ALT 35 (21-72) U/L Alkaline Phosphatase 77 (38-126) U/L Total Protein 7.6 (6.3-8.2) g/dL Albumin 4.3 (3.5-5.0) g/dL Current Medications Generic Name Dose Route Start Last Admin Trade Name Freq PRN Reason Stop Dose Admin Amlodipine Besylate 5 mg 09/09/19 21:00 09/09/19 19:17 Norvasc PO 5 mg HS MARKEL Administration Aspirin 81 mg 09/11/19 09:00 Aspirin PO DAILY MARKEL Atorvastatin Calcium 80 mg 09/09/19 21:00 09/09/19 23:02 Lipitor PO 80 mg HS MARKEL Administration Citalopram Hydrobromide 20 mg 09/10/19 09:00 09/10/19 08:00 Celexa PO 20 mg DAILY MARKEL Administration Ezetimibe 10 mg 09/10/19 09:00 Zetia PO DAILY MARKEL HCTZ/Losartan Potassium 2 each 09/10/19 09:00 Hyzaar 50-12.5 PO DAILY MARKEL Sodium Chloride 1,000 mls @ 20 mls/hr 09/09/19 16:15 09/09/19 19:15 Saline 0.9% IV 20 mls/hr .Q24H MARKEL Administration Heparin Sodium/Sodium Chloride 250 mls @ 10.002 mls/hr 09/09/19 16:15 09/10/19 02:15 25,000 unit/ Sodium Chloride IV 12.8 units/kg/hr .Q24H MARKEL 13.063 mls/hr Titration Protocol 9.8 UNITS/KG/HR Methylphenidate HCl 10 mg 09/09/19 17:30 09/10/19 06:49 Ritalin PO 10 mg AC-TID MARKEL Administration Metoprolol Succinate 50 mg 09/10/19 09:00 09/10/19 08:00 Toprol Xl PO 50 mg DAILY MARKEL Administration Nitroglycerin 0.4 mg 09/09/19 16:08 Nitrostat SUBLINGUAL Q5M PRN Chest Pain Nitroglycerin 1 inch 09/09/19 18:00 09/10/19 06:49 Nitro-Bid Oint TOPICAL 1 inch Q6HR MARKEL Administration Pantoprazole Sodium 40 mg 09/10/19 07:30 09/10/19 06:49 Protonix PO 40 mg AC-BRKFST MARKEL Administration Prasugrel 10 mg 09/10/19 09:00 Effient PO DAILY MARKEL Intake and Output 09/09/19 09/10/19 09/10/19 22:59 06:59 14:59 Intake Total 237 69.847 Output Total 750 Balance 237 -680.153 Intake: Intake, IV Titration 69.847 Amount Heparin Sod,Pork in 0.45% 69.847 NaCl 25,000 unit In 0.45 % NaCl 1 250ml.bag @ 9.8 UNITS/KG/HR 10.002 mls/hr IV .Q24H [facility] Rx#: [id number] Oral 237 Output: Urine 750 Other: # Voids 1 1 Weight 102.058 kg 103.3 kg 09/09/19 14:30 09/09/19 14:30 EKG Interpretations (text) EKG shows normal sinus rhythm with no acute changes. Assessment and Plan Plan: Assessment and plan #1 symptoms of midsternal chest discomfort, abnormal troponins, clinical picture suggesting acute coronary syndrome #2 known history of coronary artery disease with prior RCA stenting in October 2017, prior to that in 2012 patient presented with an acute myocardial infarction with subsequent ventricular tachycardia requiring defibrillation #3 hypertension #4 hyperlipidemia #5 ischemic cardiomyopathy, most recent echo in the hospital was performed in October 2017 which revealed an ejection fraction of 40-45% Plan We will obtain copy of echo done one week ago in the office, repeat a limited echocardiogram with Doppler study to assess the LV function now. We will resume the Effient, continue the aspirin, Norvasc, Lipitor, study a, metoprolol, Nitropaste, and IV heparin. Patient has been advised to undergo cardiac catheterization, the risks and the benefits were explained to him in detail and he is willing to proceed. This will be performed today by Dr. Baker. Further recommendations will be based on these findings and the patient's clinical course. DNP note has been reviewed, I agree with a documented findings and plan of care. Patient was seen and examined.
[2019-09-10 11:18] LABS: Glucose,Whole Blood 89 mg/dL (75-99)
[2019-09-10] MEDS ORDERED: IV FLUID CONTINUATION 650 ML IV ONE (12:10)
[2019-09-10] MEDS ORDERED: fentaNYL (PF) 50 MCG/ML 2 ML AMP IV ONE (12:17)
[2019-09-10] MEDS ORDERED: LIDOCAINE 1% INJ 10MG/ML (20 ML MDV) SQ ONE (12:19)
[2019-09-10] MEDS ORDERED: VERAPAMIL SYRINGE (5 MG/10 ML) INTRAARTER ONE (12:22)
[2019-09-10] MEDS ORDERED: BIVALIRUDIN BOLUS 250 MG/50 ML IV ONE (12:34)
[2019-09-10] MEDS ORDERED: BIVALIRUDIN 250 MG in SODIUM CHLORIDE 0.9% 34 ML IV ONE (12:35)
[2019-09-10] MEDS ORDERED: NITROGLYCERIN 1000MCG/10ML SYRINGE INTRACORON ONE (12:37)
[2019-09-10] MEDS ORDERED: IOPAMIDOL-370 125ML BTL INJ ONE (12:41)
[2019-09-10] MEDS ORDERED: IOPAMIDOL-370 50ML BTL INJ ONE (12:48)
[2019-09-10] MEDS ORDERED: ATROPINE SULFATE 0.1 MG/ML 10ML SYRINGE IV PRN (12:56)
[2019-09-10] MEDS ORDERED: MAG HYDROX/AL HYDROX/SIMETH 30 ML CUP PO PRN (12:56)
[2019-09-10] MEDS ORDERED: RX INFO: IV CONTRAST WAS GIVEN 1 EACH MISC MISCELLANE PRN (12:56)
[2019-09-10] MEDS ORDERED: ZOLPIDEM 5 MG TAB PO PRN (12:56)
[2019-09-10] MEDS ORDERED: SODIUM CHLORIDE 0.9% 1,000 ML IV SCH (13:00)
--- NOTE | 2019-09-10 13:02 | ECHOF ---
Referral Reason:chest pain MEASUREMENTS -------- HEIGHT: 180.3 cm WEIGHT: 103.0 kg BP: IVSd: 1.2 cm (0.6 - 1.1) LVIDd: 4.6 cm (3.9 - 5.3) LVPWd: 1.3 cm (0.6 - 1.1) IVSs: 2.0 cm LVIDs: 3.3 cm LVPWs: 1.5 cm MV E Carlos: 0.65 m/s MV DecT: 270 ms MV A Carlos: 0.83 m/s MV E/A Ratio: 0.78 FINDINGS -------- Sinus rhythm. Limited Study The left ventricular size is normal. There is mild concentric left ventricular hypertrophy. Overa ll left ventricular systolic function is mildly impaired with, an EF between 45 - 50 %. Basal infer olateral hypokinesis. CONCLUSIONS -------- 1. Sinus rhythm. 2. Limited Study for lv function. 3. The left ventricular size is normal. 4. There is mild concentric left ventricular hypertrophy. 5. Overall left ventricular systolic function is mildly impaired with, an EF between 45 - 50 %. 6. Basal inferolateral hypokinesis. DIRECTOR EXECUTIVE COMMUNICATIONS: Melissa Ferguson RD
--- NOTE | 2019-09-10 14:25 | P.HPIM ---
History of Present Illness H&P Date: 09/10/19 Chief Complaint: chest pain This is a 64-year-old male patient of Dr. Wan and Dr. Baker with past medical history of hypertension, hyperlipidemia, obstructive sleep apnea, ischemic cardiomyopathy, in 2012 he presented with a myocardial infarction and had ventricular tachycardia requiring defibrillation, the cath performed at that time revealed mild to moderate triple-vessel coronary artery disease. He again presented to the hospital in October 2017 at which time patient did have a non-Q-wave myocardial infarction, he underwent cardiac catheterization with subsequent stenting of the right coronary artery. Patient states that he had sudden onset of chest pain yesterday around noon while he was carrying groceries into the house. He then sat down and was watching TV and the chest pain continued to get worse. He said it was intermittent. He does participate in exercise class and has had no problems with activity. He states he last saw Dr. Baker 2 weeks ago and had an echocardiogram done and hasn't appointment next week for results. Patient came into [facility] emergency center for evaluation. EKG was a sinus rhythm with no acute ST-T wave changes. He apparently had a repeat EKG that did show inferior Q waves. No acute changes. Chest x-ray no pulmonary vascular congestion. Vital signs were stable, afebrile, hemoglobin 14.3, WBC, platelet count normal. D-dimer 0.46. BUN 20 creatinine 0.78. Troponins 0.07, 0.10, 0.09. Patient has been evaluated by cardiology and is scheduled for heart catheterization today. Review of Systems Constitutional: Reports fatigue, Reports weakness, Denies chills, Denies fever, Denies poor appetite, Denies weight loss Eyes: denies blurred vision, denies pain Ears, nose, mouth and throat: Denies dysphagia, Denies headache, Denies nasal congestion, Denies nasal discharge, Denies sore throat Cardiovascular: Reports chest pain, Denies dyspnea on exertion, Denies edema, Denies leg edema, Denies lightheadedness, Denies shortness of breath, Denies syncope Respiratory: Denies cough, Denies cough with sputum, Denies dyspnea, Denies hemoptysis, Denies home oxygen, Denies respiratory infections, Denies wheezing Gastrointestinal: Denies abdominal pain, Denies diarrhea, Denies loss of appetite, Denies nausea, Denies vomiting Genitourinary: Denies dysuria, Denies urinary retention Musculoskeletal: Denies frequent falls, Denies gait dysfunction, Denies muscle weakness, Denies myalgias Integumentary: Reports wounds, Denies pruritus, Denies rash Neurological: Denies change in mentation, Denies change in speech, Denies gait dysfunction, Denies numbness, Denies weakness Psychiatric: Denies anxiety, Denies depression Endocrine: Denies fatigue, Denies weight change Past Medical History Past Medical History: Chest Pain / Angina, CVA/TIA, Hyperlipidemia, Hypertension, Myocardial Infarction (NC), Osteoarthritis (OA), Sleep Ap estefany/CPAP/BIPAP Additional Past Medical History / Comment(s): kidney stones Last Myocardial Infarction Date:: 2017 History of Any Multi-Drug Resistant Organisms: None Reported Past Surgical History: Heart Catheterization, Heart Catheterization With Stent, Orthopedic Surgery, Tonsillectomy Additional Past Surgical History / Comment(s): R foot & R ankle surgery, colonoscopy. Past Anesthesia/Blood Transfusion Reactions: No Reported Reaction Date of Last Stent Placement:: 2017 Past Psychological History: ADD/ADHD, Depression Smoking Status: Former smoker Past Alcohol Use History: None Reported Additional Past Alcohol Use History / Comment(s): Patient was a smoker of 2 packs per day for 25 years and quit in 1992. No illicit drug use, no alcohol abuse. Past Drug Use History: Marijuana - Past Family History Mother Family Medical History: Cancer Additional Family Medical History / Comment(s): Mother at age 38 from cervical cancer status post cobalt radiation treatment. Father Family Medical History: Cancer Additional Family Medical History / Comment(s): Father at age 70 with metastatic prostate cancer and history of hypertension. Brother(s) Family Medical History: Coronary Artery Disease (CAD) Additional Family Medical History / Comment(s): Patient has 1 brother that at age 60 from myocardial infarction with previously known coronary artery disease. Sister(s) Additional Family Medical History / Comment(s): Patient has 1 sister with no major medical problems. Patient has 2 daughters and one has hypertension. Medications and Allergies Home Medications Medication Instructions Recorded Confirmed Type Aspirin 81 mg PO DAILY 10/14/16 09/09/19 History Citalopram Hydrobromide [CeleXA] 20 mg PO DAILY 10/14/16 09/09/19 History Losartan/Hydrochlorothiazide 1 tab PO DAILY 10/14/16 09/09/19 History [Losartan-Hctz 100-25 mg Tab] Methylphenidate HCl [Ritalin] 10 mg PO TID 10/14/16 09/09/19 History Metoprolol Succinate (ER) [Toprol 50 mg PO DAILY 10/14/16 09/09/19 History XL] amLODIPine BESYLATE [Norvasc] 5 mg PO BID 10/14/16 09/09/19 History Atorvastatin [Lipitor] 80 mg PO HS #30 tab 10/25/17 09/09/19 Rx Ezetimibe [Zetia] 10 mg PO DAILY #30 tab 10/25/17 09/09/19 Rx Pantoprazole Sodium [Protonix] 40 mg PO DAILY 09/09/19 09/09/19 History Allergies Allergy/AdvReac Type Severity Reaction Status Date / Time No Known Allergies Allergy Verified 09/09/19 16:34 Physical Exam Vitals: Vital Signs Temp Pulse Pulse Resp BP BP Pulse Ox 09/10/19 08:03 98.5 F 65 16 117/68 97 09/10/19 04:00 97.4 F L 58 L 18 138/78 96 09/10/19 00:00 98.6 F 60 18 119/86 98 09/09/19 20:53 97.7 F 54 L 18 125/77 94 L 09/09/19 20:15 97.7 F 54 L 18 125/77 94 L 09/09/19 19:00 56 L 16 164/94 97 09/09/19 18:30 64 16 144/90 96 09/09/19 18:00 53 L 14 144/92 98 09/09/19 16:00 51 L 14 131/89 09/09/19 15:30 52 L 16 126/82 96 09/09/19 15:00 56 L 16 132/82 95 09/09/19 14:32 59 L 16 96 09/09/19 14:07 98.3 F 60 18 164/92 97 Intake and Output 09/09/19 09/10/19 09/10/19 22:59 06:59 14:59 Intake Total 237 69.847 Output Total 750 Balance 237 -680.153 Intake: Intake, IV Titration 69.847 Amount Heparin Sod,Pork in 0.45% 69.847 NaCl 25,000 unit In 0.45 % NaCl 1 250ml.bag @ 9.8 UNITS/KG/HR 10.002 mls/hr IV .Q24H [facility]EL Rx#: [id number] Oral 237 Output: Urine 750 Other: # Voids 1 1 Weight 102.058 kg 103.3 kg Gen: This is a 64-year-old male. He is resting in bed and appears to be comfortable and in no acute distress. HEENT: Head is atraumatic, normocephalic. Pupils equal, round. Sclerae is anicteric. NECK: Supple. No JVD. No lymphadenopathy. No thyromegaly. LUNGS: Clear to auscultation. No wheezes or rhonchi. No intercostal retract ions. HEART: Regular rate and rhythm. Systolic ejection murmur. ABDOMEN: Soft. Bowel sounds are present. No masses. No tenderness. EXTREMITIES: No pedal edema. No calf tenderness. Dorsalis pedis +2 bilaterally. NEUROLOGICAL: Patient is awake, alert and oriented x3. Cranial nerves 2 through 12 are grossly intact. Results CBC & Chem 7: 09/09/19 14:30 09/09/19 14:30 Labs: Abnormal Lab Results - Last 24 Hours (Table) 09/09/19 09/09/19 09/09/19 Range/Units 14:30 14:30 20:35 APTT (22.0-30.0) sec Creatine Kinase 182 H (55-170) U/L Troponin I 0.070 H* 0.106 H* (0.000-0.034) ng/mL HDL Cholesterol (40-60) mg/dL 09/10/19 09/10/19 09/10/19 Range/Units 01:51 01:51 08:55 APTT 48.4 H (22.0-30.0) sec Creatine Kinase (55-170) U/L Troponin I 0.097 H* (0.000-0.034) ng/mL HDL Cholesterol 36 L (40-60) mg/dL Thrombosis Risk Factor Assmnt - DVT/VTE Prophylaxis DVT/VTE Prophylaxis: Pharmacologic Prophylaxis ordered, Mechanical Prophylaxis ordered - Choose All That Apply Each Risk Factor Represents 2 Points: Age 61-74 years Thrombosis Risk Factor Assessment Total Risk Factor Score: 2 Thrombosis Risk Factor Assessment Level: Low Risk Assessment and Plan Plan: 1. Chest pain with mild elevation in troponins, possible non-ST elevated myocardial infarction. Patient is scheduled for heart catheterization today. Echocardiogram ordered. Continue aspirin, Effient, Norvasc, Lipitor, metoprolol and continue IV heparin. 2. History of coronary artery disease with prior stenting of the RCA in October 2017. Continue as in #1. 3. History of acute myocardial infarction 2012 with subsequent ventricular tachycardia requiring defibrillation, stable. 4. Hypertension. Continue metoprolol, Norvasc, Hyzaar 50/12.5 mg 2 daily. 5. Hyperlipidemia. Continue statin, Zetia. 6. Ischemic cardiomyopathy. Repeat echocardiogram. 7. Obstructive sleep apnea. Continue Ritalin 10 mg 3 times daily. 8. Recurrent depression. Continue Celexa 20 mg daily. 9. Gastroesophageal reflux disease. Continue Protonix 40 mg daily. Patient will be admitted to the hospital for a minimum of 2 night stay. Discharge plan: Most likely return home Impression and plan of care have been directed as dictated by the signing physician. Shamika Natarajan nurse practitioner acting as scribe for signing physician.
[2019-09-10] MEDS: EZETIMIBE 10 MG TAB PO SCH (16:38)
[2019-09-10] MEDS: LOSARTAN-HCTZ 50-12.5 MG 1 EACH TAB PO SCH (16:38)
--- NOTE | 2019-09-10 16:52 | CC ---
CARDIAC CATHETERIZATION REPORT Mr. Alvarez is a 64-year-old male with a known history of coronary artery disease status post stenting of the right coronary artery in 2018, history of hypertension, hyperlipidemia, who presented with symptoms of chest pain and troponin elevation consistent with non STEMI. In view of that, recommendation made regarding cardiac catheterization. The procedure as well as risks and complications were discussed with the patient who is in full understanding and agreement. PROCEDURE DESCRIPTION: Patient was brought to [facility] in a fasting semi-sedated state after receiving fentanyl and Benadryl and achieving moderate conscious sedated state. Using Xylocaine anesthesia and Seldinger technique, a 6-Hebrew sheath was introduced in the right radial artery. Selective right and left coronary angiography were performed using 5- Hebrew 3 and half bend right and left Carley catheter. Multiple views of the coronary artery including hemiaxial views were obtained. Following that, angioplasty and stenting was performed. Following that 5-Hebrew tight pigtail catheter was introduced in the left ventricle and pressures were calculated. FINDINGS: FLUOROSCOPY: There is calcification involving all the coronary arteries. SELECTIVE CORONARY ANGIOGRAM: LEFT MAIN: This is a large-sized vessel trifurcating into left main, left anterior descending artery, ramus intermedius. Left main coronary artery has no evidence of high-grade stenosis. LEFT ANTERIOR DESCENDING CORONARY ARTERY: Left anterior descending artery is a large- sized vessel reaching toward the apex with a wraparound the apex segment, calcified, giving rise to a moderately sized diagonal branch proximally. After the takeoff of the diagonal branch, there is an eccentric 30-40 percent plaque. The rest of the vessel has no high-grade stenosis. LEFT CIRCUMFLEX: This is a nondominant vessel giving rise to a large obtuse marginal branch. The left circumflex throughout its course and in the proximal left obtuse marginal branch has plaques up to 30% to 40% without critical stenosis. RAMUS INTERMEDIUS: This is a large-sized vessel reaching toward the apical lateral wall. The ramus intermedius has a 99% stenosis proximally. RIGHT CORONARY ARTERY: This is a heavily calcified vessel, dominant, bifurcating into PDA and posterolateral segment and branches. The proximal segment of the right coronary artery has a 20% to 30%. The mid segment is stented and has no evidence of significant in-stent restenosis. There is mild plaque distal to the stent. LEFT VENTRICULOGRAM: Left ventriculogram is not performed. HEMODYNAMICS: There was no gradient across the aortic valve. The left ventricular end-diastolic pressure was 20-24 mmHg. CONCLUSION: 1. Critical stenosis involving the ramus intermedius. 2. Moderate triple-vessel coronary artery disease with calcified vessels. No significant progression of disease compared with the images of October 11, 2017 and no significant in-stent restenosis of the right coronary artery. RECOMMENDATIONS: In view of finding anatomy, I recommend proceeding with angioplasty and stenting of the ramus intermedius. The procedures, risks and complications were discussed with the patient who is in full understanding and agreement. MMODL / IJN: [id number] /
--- NOTE | 2019-09-10 16:55 | PTCA ---
PERCUTANEOUSTRANS CORORONARY ANGIOGRAPHY Mr. Alvarez is a 64-year-old male with a known history of coronary artery disease who presented with non-STEMI, underwent cardiac catheterization, was found to have critical stenosis involving the ramus intermedius. In view of that, recommendation was made regarding angioplasty and stenting. The procedures as well as risks and complications were discussed with the patient who is in full understanding and agreement. DESCRIPTION OF PROCEDURE: A 6-Citizen Of [place] 3.5 guiding catheter was introduced into the system. After cannulating the left main, a 0.014 balanced medium weight J-wire was advanced across the lesion and positioned in the distal ramus intermedius. Following that, a 2.75 x 15 mm Xience Marla stent was deployed post at 14 atmospheres. Following that, the balloon was removed and a 3.0 x 12 mm NC Trek balloon was advanced and one inflation at 12 atmospheres was done. After the last inflation, after appropriate wait, the balloon and the guidewire were withdrawn back in the guiding catheter. Images were obtained, repeated. Those images revealed stable successful stenting. At that point, the guiding catheter, the balloon and the guidewire were removed. Left ventricular end- diastolic pressure was calculated. Following that, the catheter and sheath were removed. Hemostasis was obtained with deployment of a TR band. There was no immediate complication. Patient is returned to his room in stable condition. Of note, the patient received Angiomax per protocol and was continued on Effient. He had no chest discomfort or significant EKG changes with the inflations. Impression: Stenting of Ramus intermedius with reduction of stenosis from 95% to 0%. Plan: Continue ASA and effient, the recommendation and plans were discussed with the patient and family and they are in full agreement. MMODL / IJN: [id number] / MTDReji
[2019-09-10] MEDS: ATORVASTATIN 80 MG TAB PO SCH (22:12)
[2019-09-10] MEDS: amLODIPine 5 MG TAB PO SCH (22:12)
[2019-09-10 22:59] VITALS: RESP 18
[2019-09-11 06:37] LABS: African American GFR (CKD) >90 (>60 ml/min/1.73 sqM); Anion Gap 7 mmol/L; Blood Urea Nitrogen 12 mg/dL (9-20); Calcium 9.3 mg/dL (8.4-10.2); Carbon Dioxide 28 mmol/L (22-30); Chloride 103 mmol/L (98-107); Glucose 99 mg/dL (74-99); Non-African American GFR(CKD) >90 (>60 ml/min/1.73 sqM); Potassium 3.9 mmol/L (3.5-5.1); Sodium 138 mmol/L (137-145)
[2019-09-11] MEDS: METHYLPHENIDATE HCL 10 MG TAB PO SCH (06:49)
[2019-09-11] MEDS: PANTOPRAZOLE 40 MG TABLET PO SCH (06:49)
[2019-09-11] MEDS: CITALOPRAM HYDROBROMIDE 20 MG TAB PO SCH (07:42)
[2019-09-11] MEDS: LOSARTAN-HCTZ 50-12.5 MG 1 EACH TAB PO SCH (07:42)
[2019-09-11] MEDS: PRASUGREL 10 MG TAB PO SCH (07:42)
[2019-09-11] MEDS: EZETIMIBE 10 MG TAB PO SCH (07:42)
[2019-09-11] MEDS: METOPROLOL SUCCINATE (ER) 50 MG TAB.ER.24H PO SCH (07:42)
[2019-09-11 07:46] VITALS: BP 135/75; PULSE 61; TEMP 97.8
[2019-09-11] MEDS ORDERED: ASPIRIN 81 MG PO SCH (09:00)
[2019-09-11] MEDS: NITROGLYCERIN OINT 1 INCH/GM PACKET TOPICAL SCH (10:27)
--- NOTE | 2019-09-11 12:46 | P.PN ---
Subjective Progress Note Date: 09/11/19 This is a pleasant 64-year-old gentleman who follows regularly with Dr. Baker in the office. He has known history of hypertension, hyperlipidemia, nonsmoker, nondiabetic, sleep apnea, ischemic cardiomyopathy, in 2012 he presented with a myocardial infarction and had ventricular tachycardia requiring defibrillation, the cath performed at that time revealed mild to moderate triple-vessel coronary artery disease. He again presented to the hospital in October 2017 at which time patient did have a non-Q-wave myocardial infarction, he underwent cardiac catheterization with subsequent stenting of the right coronary artery at that time. Patient had been on Effient for year and a half, in January of this year it was discontinued by Dr. Baker. 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 He presents to the hospital on this occasion with symptoms of midsternal chest discomfort which she describes as an ache in his chest, he states that it reminds him of what he had prior to his stent placement but much less severe. He also states that he was in the office one week ago and underwent an echocardiogram with Doppler study at that time. EKG on presentation here showed a normal sinus rhythm with no acute changes noted. Subsequent EKG performed this morning showed normal sinus rhythm with inferior Q waves, no acute changes noted. Chest x-ray shows no pulmonary vascular congestion, lungs are clear, blood pressure 116/68, heart rate in the 60s, 97% on room air. White blood cell count is normal, hemoglobin 14.3, platelet count 248. D-dimer 0.46. Sodium 140, potassium 4.0, BUN 20, creatinine 0.78. Troponins 0.07, 0.10, 0.09. At the time of my examination this morning the patient is currently chest pain-free. 09/11/2019 Patient was taken to the cardiac catheterization lab yesterday where he underwent stenting of the ramus intermediate with reduction of stenosis from 95- 0. He was seen and examined this morning, denied any chest pain or difficulty in breathing. Hemodynamically he is stable. EKG shows normal sinus rhythm with no changes from post-PCI. Objective - Vital Signs Vital signs: Vital Signs Temp 97.8 F 09/11/19 07:45 Pulse 61 09/11/19 07:45 Resp 18 09/11/19 07:45 BP 135/75 09/11/19 07:45 Pulse Ox 96 09/11/19 07:45 Intake & Output 09/10/19 09/11/19 09/11/19 18:59 06:59 18:59 Intake Total 1250.349 480 Output Total 500 500 Balance 750.349 -500 480 Weight 103.3 kg 102.5 kg Intake: IV 119 Intake, IV Titration 117.349 Amount Heparin Sod,Pork in 0.45% 117.349 NaCl 25,000 unit In 0.45 % NaCl 1 250ml.bag @ 9.8 UNITS/KG/HR 10.002 mls/hr IV .Q24H [facility] Rx#: [id number] Oral 1014 480 Output: Urine 500 500 Other: # Voids 1 1 2 - Exam PHYSICAL EXAMINATION: GENERAL: 44-year-old gentleman in no acute distress at the time of my examination HEENT: Head is atraumatic, normocephalic. Pupils equal, round. Sclera anicteric. Conjunctiva are clear. Mucous membranes of the mouth are moist. Neck is supple. There is no elevated jugular venous pressure. No carotid b ruit is heard. HEART EXAMINATION: Heart S1 S2 1 systolic ejection murmur is heard CHEST EXAMINATION: Lungs are clear to auscultation and precussion. No chest wall tenderness is noted on palpation or with deep breathing. ABDOMEN: Soft, nontender. Bowel sounds are heard. No organomegaly noted. EXTREMITIES: 2+ peripheral pulses with no evidence of peripheral edema and no calf tenderness noted. Right radial site clean and dry, good distal pulse. NEUROLOGIC patient is awake, alert and oriented 3 . . - Labs CBC & Chem 7: 09/09/19 14:30 09/11/19 05:36 Assessment and Plan Plan: Assessment and plan #1 symptoms of midsternal chest discomfort, abnormal troponins, clinical picture suggesting acute coronary syndrome, status post angioplasty and stenting of the ramus intermedius #2 known history of coronary artery disease with prior RCA stenting in October 2017, prior to that in 2012 patient presented with an acute myocardial infarction with subsequent ventricular tachycardia requiring defibrillation #3 hypertension #4 hyperlipidemia #5 ischemic cardiomyopathy, most recent echo in the hospital was performed in October 2017 which revealed an ejection fraction of 40-45% Plan From cardiology's perspective, patient may be able to be discharged home today, we'll make him a follow-up appointment to see Dr. Baker in the office post discharge. DNP note has been reviewed, I agree with a documented findings and plan of care. Patient was seen and examined.
--- NOTE | 2019-09-11 13:43 | P.DS ---
Providers Date of admission: 09/10/19 11:25 Expected date of discharge: 09/11/19 Attending physician: Balwinder Hdz Consults: 09/09/19 16:08 Consult Physician Urgent Consulting Provider: Cr Baker Consult Reason/Comments: Chest pain, elevated troponin Do you want consulting provider notified?: Yes 09/10/19 12:56 Consult Physician Routine Consulting Provider: [facility] Consult Reason/Comments: Post Interventional patient Do you want consulting provider notified?: Already Contacted Primary care physician: Alireza Wan [facility] Course: This is a 64-year-old male patient of Dr. Wan and Dr. Baker with past medical history of hypertension, hyperlipidemia, obstructive sleep apnea, ischemic cardiomyopathy, in 2012 he presented with a myocardial infarction and had ventricular tachycardia requiring defibrillation, the cath performed at that time revealed mild to moderate triple-vessel coronary artery disease. He again presented to the hospital in October 2017 at which time patient did have a non-Q-wave myocardial infarction, he underwent cardiac catheterization with subsequent stenting of the right coronary artery. Patient states that he had sudden onset of chest pain yesterday around noon while he was carrying groceries into the house. He then sat down and was watching TV and the chest pain continued to get worse. He said it was intermittent. He does participate in exercise class and has had no problems with activity. He states he last saw Dr. Baker 2 weeks ago and had an echocardiogram done and hasn't appointment next week for results. Patient came into [facility] emergency center for evaluation. EKG was a sinus rhythm with no acute ST-T wave changes. He apparently had a repeat EKG that did show inferior Q waves. No acute changes. Chest x-ray no pulmonary vascular congestion. Vital signs were stable, afebrile, hemoglobin 14.3, WBC, platelet count normal. D-dimer 0.46. BUN 20 creatinine 0.78. Troponins 0.07, 0.10, 0.09. Patient has been evaluated by cardiology and is scheduled for heart catheterization today. 09/11: Limited echocardiogram revealed EF of 45-50%. Yesterday, patient unde rwent heart catheterization with Dr. Baker that revealed critical stenosis involving the ramus intermedius. Moderate triple-vessel coronary artery disease with calcified vessels. No significant progression of disease since October 2017 and no significant in-stent restenosis of the right coronary artery. Patient subsequently underwent stenting of the ramus intermedius. He denies having any chest pain, shortness of breath lightheadedness or dizziness. Cardiology has cleared the patient for discharge home. Patient to continue aspirin and Effient. Patient will be discharged home today in stable condition. Discharge diagnoses: 1. Non-ST elevated myocardial infarction status post heart catheterization and stenting of the ramus intermedius. 2. History of coronary artery disease with prior stenting of the RCA in October 2017. 3. History of acute myocardial infarction 2012 with subsequent ventricular tachycardia requiring defibrillation, stable. 4. Hypertension. 5. Hyperlipidemia. 6. Ischemic cardiomyopathy. 7. Obstructive sleep apnea. 8. Recurrent depression. 9. Gastroesophageal reflux disease. Discharge plan: home Impression and plan of care have been directed as dictated by the signing physician. Shamika Natarajan nurse practitioner acting as scribe for signing physician. Patient Condition at Discharge: Good Plan - Discharge Summary Discharge Rx Participant: No New Discharge Prescriptions: New Prasugrel [Effient] 10 mg PO DAILY #30 tab Nitroglycerin Sl Tabs [Nitrostat] 0.4 mg SUBLINGUAL Q5M PRN #25 tab PRN Reason: Chest Pain Continue Citalopram Hydrobromide [CeleXA] 20 mg PO DAILY Metoprolol Succinate (ER) [Toprol XL] 50 mg PO DAILY Aspirin 81 mg PO DAILY Methylphenidate HCl [Ritalin] 10 mg PO TID Losartan/Hydrochlorothiazide [Losartan-Hctz 100-25 mg Tab] 1 tab PO DAILY Atorvastatin [Lipitor] 80 mg PO HS #30 tab Ezetimibe [Zetia] 10 mg PO DAILY #30 tab Pantoprazole Sodium [Protonix] 40 mg PO DAILY Changed amLODIPine BESYLATE [Norvasc] 5 mg PO HS #0 Discharge Medication List Aspirin 81 mg PO DAILY 10/14/16 [History] Citalopram Hydrobromide [CeleXA] 20 mg PO DAILY 10/14/16 [History] Losartan/Hydrochlorothiazide [Losartan-Hctz 100-25 mg Tab] 1 tab PO DAILY 10/14/16 [History] Methylphenidate HCl [Ritalin] 10 mg PO TID 10/14/16 [History] Metoprolol Succinate (ER) [Toprol XL] 50 mg PO DAILY 10/14/16 [History] Atorvastatin [Lipitor] 80 mg PO HS #30 tab 01/23/18 [Rx] Ezetimibe [Zetia] 10 mg PO DAILY #30 tab 10/25/17 [Rx] Pantoprazole Sodium [Protonix] 40 mg PO DAILY 09/09/19 [History] Nitroglycerin Sl Tabs [Nitrostat] 0.4 mg SUBLINGUAL Q5M PRN #25 tab 09/11/19 [Rx] Prasugrel [Effient] 10 mg PO DAILY #30 tab 09/11/19 [Rx] amLODIPine BESYLATE [Norvasc] 5 mg PO HS #0 09/11/19 [Rx] Follow up Appointment(s)/Referral(s): Cr Baker MD [STAFF PHYSICIAN] - 09/14/19 2:45 pm (Tuesday) Alireza Wan MD [Primary Care Provider] - 09/18/19 11:00 am (Tuesday with TRAINING LEAD) Patient Instructions/Handouts: After Radial Heart Catheterization (GEN) Discharge Disposition: HOME SELF-CARE
[2019-09-12] MEDS ORDERED: ASPIRIN 81 MG PO SCH (09:00)
== END 2019-09-11 11:00 | disposition home or self-care (01) | DRG 247 ==
LOC: EC 13:59 → 3SCARD 16:14 → OBSVTOIN 09-10 11:25
PROVIDERS: ADMIT Internal Medicine; ATTEND Internal Medicine
PROC: 027034Z Dilation of Coronary Artery, One Artery with Drug-eluting Intraluminal Device, Percutaneous Approach (ICD-10-PCS; principal; 2019-09-10 10:15)
PROC: B2111ZZ Fluoroscopy of Multiple Coronary Arteries using Low Osmolar Contrast (ICD-10-PCS; 2019-09-10 10:15)
PROC: 4A023N7 Measurement of Cardiac Sampling and Pressure, Left Heart, Percutaneous Approach (ICD-10-PCS; 2019-09-10 10:15)
DX: I21.4 Non-ST elevation (NSTEMI) myocardial infarction (principal); F33.9 Major depressive disorder, recurrent, unspecified; I47.2 Ventricular tachycardia; I10 Essential (primary) hypertension; G47.33 Obstructive sleep apnea (adult) (pediatric); F90.9 Attention-deficit hyperactivity disorder, unspecified type; E78.5 Hyperlipidemia, unspecified; I25.110 Atherosclerotic heart disease of native coronary artery with unstable angina pectoris; I25.5 Ischemic cardiomyopathy; K21.9 Gastro-esophageal reflux disease without esophagitis; Z79.02 Long term (current) use of antithrombotics/antiplatelets; I25.2 Old myocardial infarction; Z79.82 Long term (current) use of aspirin; Z79.899 Other long term (current) drug therapy; Z82.49 Family history of ischemic heart disease and other diseases of the circulatory system; Z86.73 Personal history of transient ischemic attack (TIA), and cerebral infarction without residual deficits; Z87.442 Personal history of urinary calculi; Z87.891 Personal history of nicotine dependence; Z95.5 Presence of coronary angioplasty implant and graft; Z80.42 Family history of malignant neoplasm of prostate; Z80.49 Family history of malignant neoplasm of other genital organs
CPT/HCPCS: 36415; 71046; 80048; 80053; 80061; 82550; 83690; 83735; 83880; 84484; 85025; 85347; 85379; 85610; 85730; 93005; 93308; 93458; 96365; 96376; 99291; C1874

== ENCOUNTER → 2020-07-15 | Outpatient (CLI) | payer MEDICARE, BC ==
--- NOTE | 2020-07-15 17:42 | PN ---
PROGRESS NOTE This is a 65-year-old male patient coming in for an annual check regarding his DAIN. The patient has mild disease with an AHI of 6.4 and currently is on a CPAP pressure of 8. He continues to have leaks around the mask. On today's evaluation I switched him from AirFit F20 to a Simplus large-sized full-face mask. I noted that his leaks have gotten worse over the past one year, and the patient is currently leaking on the order of 115 L/minute. Despite that, his AHI is down to 2 and his treatment is successful. The patient is utilizing his machine more than 4 hours on 29 out of the past 30 days. His weight has been essentially stable at 235. No significant weight gain or weight loss. No chest pain. No shortness of breath. No heartburn. No aerophagia. No flatus. BP is 145/78, pulse 56, respirations 16, temperature 97.8, weight is 235, height is 6 feet 0 inches. [place] score is 4, BMI 31.8, saturation 97% on room air. GENERAL APPEARANCE: Calm, comfortable. HEAD: Atraumatic, normocephalic. NECK: Supple. No JVD. No goiter or neck masses. LUNGS: Clear to auscultation. HEART: Heart sounds are regular rate and rhythm. Normal S1, S2. No S3, S4. No murmurs. ABDOMEN: Soft, nontender. No organomegaly. EXTREMITIES: No edema. No cyanosis or clubbing. IMPRESSION: 1. Obstructive sleep apnea with an apnea/hypopnea index of 6.4, currently on CPAP pressure of 8. No issues with his treatment with the exception of the increased air leaks around the mask. The patient is using an AirFit F20 full-face mask. Treatment is successful. His AHI is down to 2. 2. Coronary artery disease. 3. Hyperlipidemia. 4. Hypertension. 5. Attention deficit disorder. PLAN: 1. Switch this patient to a Simplus full-face mask, large size. 2. Encourage weight loss. 3. Implement good sleep hygiene measures. 4. Monitor the leaks. 5. See me back in a year's time in followup. MMODL / IJN: [id number] /
== END | disposition home or self-care (01) ==
LOC: SLEEP 16:26
PROVIDERS: ATTEND Internal Medicine Critical Care Medicine
DX: G47.33 Obstructive sleep apnea (adult) (pediatric) (principal); I25.10 Atherosclerotic heart disease of native coronary artery without angina pectoris; E78.5 Hyperlipidemia, unspecified; I10 Essential (primary) hypertension; F98.8 Other specified behavioral and emotional disorders with onset usually occurring in childhood and adolescence; Z99.89 Dependence on other enabling machines and devices

== ENCOUNTER → 2021-07-28 | Outpatient (CLI) | payer MEDICARE, BC ==
--- NOTE | 2021-07-28 19:51 | PN ---
PROGRESS NOTE Eduardo is 66, coming for an annual check regarding obstructive sleep apnea. The patient has mild disease with an AHI of 6.4. He is currently retired. He enjoys his CPAP use overnight. He is sleeping well. His sleep quality is improved. He is using a CPAP pressure of 8 cm of water. His humidity level is at 3 with a temperature of the tubing at 70 degrees Fahrenheit. He has lost weight on the order of 5 pounds over the past one year. Based on the compliance data, the patient has achieved an average of 7 hours of CPAP use per night, and CPAP use for more than 4 hours is 28/30, and his leak is on the order of 107 L/minute. His AHI is down to 2.1. He is using an AirFit F20 full- face mask and he keeps his head gear loose; for that reason, we have seen increase in the amount of leaks. However, despite the increased leak, he is not snoring. He is not having any major residual obstructive respiratory events. REVIEW OF SYSTEMS: Fourteen-point review of systems was done. Positive findings are all mentioned above in the history of present illness. PHYSICAL EXAMINATION: BP is 160/84, pulse 67, respiratory rate 16, temperature 96.9, saturation 95% on room air. Height is 6 feet 0 inches, weight is 230, BMI 31.3. [place] score is 6. GENERAL APPEARANCE: Calm, comfortable. HEAD: Atraumatic, normocephalic. Neck is supple. No JVD. No goiter or neck masses. LUNGS: Clear to auscultation. Heart sounds are regular rate and rhythm. Normal S1, S2. No S3, S4. No murmurs. ABDOMEN: Soft, nontender. No organomegaly. EXTREMITIES: No edema. No cyanosis or clubbing. NEUROLOGIC: Awake and alert. There is no focal neurological deficit. PSYCHIATRIC: Negative for anxiety or depression. IMPRESSION: 1. Symptomatic obstructive sleep apnea, AHI of 6.4, currently on CPAP at a pressure of 8. Treatment has been successful and the patient continues to use an AirFit F20 full-face mask. 2. Hypersomnia, recovered. 3. Coronary artery disease. 4. Hypertension. 5. Hyperlipidemia. 6. Attention deficit disorder. PLAN: 1. Keep the patient on a pressure of 8 cm of water. 2. Keep the AirFit F20 full-face mask and tighten the head gear. 3. Treatment is successful. Compliance data was checked. No need for any further adjustments. Encourage further weight loss and see me back in a year's time in followup. MMODL / IJN: [id number] /
== END ==
LOC: SLEEP 13:58
PROVIDERS: ATTEND Internal Medicine Critical Care Medicine
DX: G47.33 Obstructive sleep apnea (adult) (pediatric) (principal); I25.10 Atherosclerotic heart disease of native coronary artery without angina pectoris; E78.5 Hyperlipidemia, unspecified; F98.8 Other specified behavioral and emotional disorders with onset usually occurring in childhood and adolescence; Z87.891 Personal history of nicotine dependence; Z99.89 Dependence on other enabling machines and devices

== ENCOUNTER → 2022-06-15 | Outpatient (CLI) | payer MEDICARE ==
--- NOTE | 2022-06-15 16:50 | P.PN ---
Subjective Progress Note Date: 06/15/22 66-year-old male patient is coming to see me for a follow-up regarding his obstructive sleep apnea. This checked. The patient is a case of mild DAIN with an AHI of 6.4 and the patient continues to receive CPAP therapy at a pressure of 8 cm of water. The patient lost his machine and doesn't want to make any changes. Despite the increased leak around the mask, the patient is successfully treated and his AHI while on treatment is down to 1.9 and this is based on a 30 day compliance he data evaluation. He is still been averaging around 7 hours of CPAP use per night. His weight is stable. He remains on a CPAP pressure of 8 cm of water. He is use of the machine for more than 4 hours as 100%. The patient has no weight gain. Continues to use Ventolin for symptoms of ADHD. He is using an airfit F20 large size full facemask. No heartburn. No chest pain. No shortness of breath. No weight gain. No cardiac arrhythmias. No stroke. Objective - Exam BP is 140/90 with a pulse of 69 respiration of 16 and the weight is 231 and [place] scores of 7 with a temperature 97.1 and oxygen saturations 97% The patient appeared well nourished and normally developed. Vital signs as documented. Head exam is unremarkable. No scleral icterus or corneal arcus noted. Neck is without jugular venous distension, thyromegaly, or carotid bruits. Carotid upstrokes are brisk bilaterally. Lungs are clear to auscultation and percussion. Cardiac exam reveals the PMI to be normally sized and situated. Rhythm is regular. First and second heart sounds normal. No murmurs, rubs or gallops. Abdominal exam reveals normal bowel sounds, no masses, no organomegaly and no aortic enlargement. Extremities are nonedematous and both femoral and pedal pulses are normal.Examination of the skin revealed no evidence of significant rashes, suspicious appearing nevi or other concerning lesions.Neurologically, the patient is awake and alert and the patient does not have any focal neurological deficit. Cranial nerves are essentially intact. Assessment and Plan Plan: Obstructive sleep apnea, AHI of 6.4 indicating mild disease yet the patient has seen significant improvement on treatment and the patient is to continue CPAP therapy at a similar blood pressure without having to make any adjustments. He continues to use the airfit F20 full facemask large size. Chronic hypersomnia, improved Coronary artery disease with previous LA Hypertension Hyperlipidemia Attention deficit disorder maintained on insulin Plan refill all of the supplies, keep the pressure of 8 cm of water. Keep the area/full facemask large size. Compliance evaluation was done. No need for any further adjustment. See me back in a year, follow-up.
== END ==
LOC: SLEEP 15:38
PROVIDERS: ATTEND Internal Medicine Critical Care Medicine
DX: G47.33 Obstructive sleep apnea (adult) (pediatric) (principal); I25.10 Atherosclerotic heart disease of native coronary artery without angina pectoris; Z99.89 Dependence on other enabling machines and devices; I25.2 Old myocardial infarction; I10 Essential (primary) hypertension; E78.5 Hyperlipidemia, unspecified; F90.9 Attention-deficit hyperactivity disorder, unspecified type; Z87.891 Personal history of nicotine dependence

== ENCOUNTER → 2024-09-29 | Outpatient (CLI) | payer MEDICARE ==
--- NOTE | 2024-09-29 11:40 | MR ---
EXAMINATION TYPE: MR Prostate wo/w con DATE OF EXAM: 09/29/2024 8:29 AM COMPARISON: None. CLINICAL INDICATION: Male, 69 years old with history of R97.20 ELEVATED PSA; Elevated PSA TECHNIQUE: Multi-planar, multi-sequence imaging of the pelvis is performed prior to and following the uncomplicated administration of bolus intravenous gadolinium. IV Contrast: 11 mL Gadobutrol Interpretive Criteria: PI-RADS v2.1 SERUM PSA: PSA 4.12 08-15-2023 PSA 6.77 08-16-2024 SURGICAL PATHOLOGY: No data available. FINDINGS: Prostatic dimensions: 5.3 x 6.9 x 5.1 cm. Ellipsoid Volume:86.33 (PSA density=0.08 ng/mL/mL) CENTRAL GLAND (Central and Transition Zones/CZ+TZ): Multiple bilateral, heterogenous appearing hypertrophic stromal nodules, without suspicious lesion. M edian lobe hypertrophy with protrusion into the base of the bladder. (PI-RADS 2) PERIPHERAL ZONE (PZ): Bilobed low ADC higher DWI and low T2 possible post contrast enhancement area in totality 12 x 5 mm i n the apex anteriorly (PI-RADS 4) SEMINAL VESICLES (SV): Symmetric and unremarkable. PERIPROSTATIC TISSUES: Unremarkable. LYMPH NODES: No enlarged pelvic lymph node. REMAINING PELVIS: Bladder wall is within normal limits given distention. No abnormal free or organized intrapelvic fluid collection. No pathologic bowel dilation or mural thickening. Right fat containing inguinal hernia OSSEOUS STRUCTURES: No suspicious osseous abnormality. IMPRESSION: 1. PI-RADS 4 lesion right anterior peripheral zone apex measuring 12 x 5 mm the bilobed morphology. 2. Substantial BPH, estimated gland volume 86.33 mL. 3. No suspicious osseous lesion. No lymphadenopathy. No evidence of prostate adenocarcinoma involving the periprostatic tissues. [facility], , 09/29/2024 11:37 AM
== END | disposition home or self-care (01) ==
LOC: RADMRIMAIN 07:16
PROVIDERS: ATTEND Urology
DX: R97.20 Elevated prostate specific antigen [PSA] (principal); N40.0 Benign prostatic hyperplasia without lower urinary tract symptoms; K40.90 Unilateral inguinal hernia, without obstruction or gangrene, not specified as recurrent
CPT/HCPCS: 72197; A9585

== ENCOUNTER → 2024-10-22 | Outpatient (CLI) | payer MEDICARE ==
[2024-10-22 14:49] LABS: Basophils # (A) 0.08 X 10*3/uL (0.00-0.10); Basophils % (A) 0.9 %; Eosinophils # (A) 0.32 X 10*3/uL (0.04-0.35); Eosinophils % (A) 3.7 %; HCT 46.6 % (39.6-50.0); HGB 14.7 g/dL (13.0-17.0); Lymphocytes # (A) 2.59 X 10*3/uL (0.90-5.00); Lymphocytes % (A) 29.8 %; MCH 29.4 pg (27.0-32.0); MCHC 31.5 g/dL (32.0-37.0); MCV 93.2 FL (80.0-97.0); Mean Platelet Volume 10.9 FL (9.5-12.2); Monocytes # (A) 0.77 X 10*3/uL (0.20-1.00); Monocytes % (A) 8.9 %; NRBC Per 100 WBC 0 X 10*3/uL (0.00-0.01); Neutrophils % (A) 56.4 %; Platelet Count 267 X 10*3/uL (140-440); RDW 13.2 % (11.5-14.5); WBC 8.69 X 10*3/uL (4.50-10.00)
[2024-10-22 15:00] LABS: Blood Urea Nitrogen 15.6 mg/dL (9.0-27.0); Calcium 9.3 mg/dL (8.7-10.3); Carbon Dioxide 25.2 mmol/L (21.6-31.8); Chloride 103 mmol/L (96-109); Glucose 106 mg/dL (70-110); Potassium 4.6 mmol/L (3.5-5.5); Sodium 139 mmol/L (135-145)
[2024-10-22 15:32] LABS: Appearance,Urine Clear (Clear); Bilirubin,Urine Negative (Negative); Blood,Urine Negative (Negative); Color,Urine Yellow (Yellow); Ketones,Urine Negative (Negative); Nitrite,Urine Negative (Negative); PH, Urine 7.5; Specific Gravity,Urine 1.016 (1.001-1.030)
== END | disposition home or self-care (01) ==
LOC: LABPAT 09:38
PROVIDERS: ATTEND Urology
DX: Z01.812 Encounter for preprocedural laboratory examination (principal); R97.20 Elevated prostate specific antigen [PSA]
CPT/HCPCS: 80048; 81003; 85025; 87086

== ENCOUNTER 2024-10-23 12:50 | Day surgery (SDC) | payer MEDICARE ==
--- NOTE | 2024-10-23 10:10 | P.HPIHPCON ---
History of Present Illness H&P Date: 10/23/24 Chief Complaint: Elevated PSA 69-year-old male with history of elevated PSA at 6.77, MRI showed evidence of a PI-RADS4 lesion along the right anterior apex discussed with him given this finding I do recommend proceeding with an MRI fusion biopsy of the prostate. Aware of the risk which includes but not limited to bleeding, and infection. He understood all the risk and agreed to proceed Consent for Procedure: I have explained the operation/procedure to the patient, including the risks, benefits, side effects, alternative therapies (including not receiving the proposed treatment or service), the likelihood of the patient achieving his/her goals, and potential recuperation problems for the procedure/sedation/analgesia, as well as any blood products, if indicated. I also explained to the patient the risks, benefits and side effects of the alternatives, as well as the risks related to not receiving the proposed procedure, care, treatment, or services. Past Medical History Past Medical History: Chest Pain / Angina, CVA/TIA, GERD/Reflux, Hyperlipidemia, Hypertension, Myocardial Infarction (DC), Osteoarthritis (OA), Sleep Apnea/CPAP/BIPAP Additional Past Medical History / Comment(s): kidney stones, no residuals from TIA, uses CPAP, spots on Prostate. ?BPH, hx eczema Last Myocardial Infarction Date:: 2012,2017,2018 History of Any Multi-Drug Resistant Organisms: None Reported Past Surgical History: Heart Catheterization, Heart Catheterization With Stent, Orthopedic Surgery, Tonsillectomy Additional Past Surgical History / Comment(s): R foot & R ankle surgery, colonoscopy. Past Anesthesia/Blood Transfusion Reactions: No Reported Reaction Date of Last Stent Placement:: 2017 Smoking Status: Former smoker - Past Family History Mother Family Medical History: Cancer Additional Family Medical History / Comment(s): Mother at age 38 from cervical cancer status post cobalt radiation treatment. Father Family Medical History: Cancer, Hypertension Additional Family Medical History / Comment(s): Father at age 70 with metastatic prostate cancer and history of hypertension. Brother(s) Family Medical History: Coronary Artery Disease (CAD), Myocardial Infarction (DC) Additional Family Medical History / Comment(s): Patient has 1 brother that at age 60 from myocardial infarction with previously known coronary artery disease. Sister(s) Additional Family Medical History / Comment(s): Patient has 1 sister with no major medical problems. Patient has 2 daughters and one has hypertension. Medications and Allergies Home Medications Medication Instructions Recorded Confirmed Type Aspirin 81 mg PO DAILY 10/14/16 10/22/24 History Citalopram Hydrobromide [CeleXA] 20 mg PO DAILY 10/14/16 10/22/24 History Losartan/Hydrochlorothiazide 1 tab PO DAILY 10/14/16 10/22/24 History [Losartan-Hctz 100-25 mg Tab] Metoprolol Succinate (ER) [Toprol 50 mg PO DAILY 10/14/16 10/22/24 History XL] Atorvastatin [Lipitor] 80 mg PO HS #30 tab 10/25/17 10/22/24 Rx Ezetimibe [Zetia] 10 mg PO DAILY #30 tab 10/25/17 10/22/24 Rx Pantoprazole Sodium [Protonix] 40 mg PO DAILY 09/09/19 10/22/24 History Nitroglycerin Sl Tabs [Nitrostat] 0.4 mg SUBLINGUAL Q5M PRN #25 tab 09/11/19 10/22/24 Rx amLODIPine BESYLATE [Norvasc] 5 mg PO HS #0 09/11/19 10/22/24 Rx Ibuprofen [Motrin] 800 mg PO DIRECTED PRN 10/22/24 10/22/24 History Spironolactone 25 mg PO DAILY 10/22/24 10/22/24 History Tamsulosin [Flomax] 0.4 mg PO DAILY 10/22/24 10/22/24 History Unk Multi Vitamin 1 tab PO DAILY 10/22/24 10/22/24 History hydrALAZINE HCL 25 mg PO BID 10/22/24 10/22/24 History Allergies Allergy/AdvReac Type Severity Reaction Status Date / Time No Known Allergies Allergy Verified 10/22/24 08:28 Surgical - Exam - General no distress, no pain - Eyes normal ocular movement, no pale - ENT normal nares, normal mucosa - Respiratory normal expansion, normal respiratory effort - Abdomen Abdomen: soft, non tender Assessment and Plan Assessment: OR for MRI fusion biopsy of the prostate
[~2024-10-23 12:50] MED LIST changes: +HYDROmorphone 0.5 MG/0.5 ML SYRINGE IVP PRN; +LIDOCAINE 1% (10MG/ML) FOR IV START INTRADERMA PRN; -LIDOCAINE 1% 20 ML VIAL (10MG/ML) FOR IV START INTRADERMA PRN
[2024-10-23 13:59] VITALS: TEMP 97.5
[2024-10-23] MEDS: IV FLUID CONTINUATION 1,000 ML IV ONE ×2 (14:04→14:35)
[2024-10-23] MEDS: LACTATED RINGERS 1,000 ML IV SCH (14:05)
[2024-10-23] MEDS: ONDANSETRON 4 MG/2 ML VIAL IVP PRN (14:15)
[2024-10-23] MEDS: GENTAMICIN 40 MG/ML 2 ML VIAL IM PRN (14:21)
[2024-10-23] MEDS ORDERED: fentaNYL (PF) 50 MCG/ML 2 ML AMP ONE (14:35)
[2024-10-23] MEDS ORDERED: PROPOFOL 10 MG/ML 20 ML VIAL IV ONE (14:35)
[2024-10-23] MEDS ORDERED: LIDOCAINE 1% INJ 10MG/ML (20 ML MDV) ONE (14:35)
--- NOTE | 2024-10-23 15:13 | P.OP ---
Date of Procedure: 10/23/24 Preoperative Diagnosis: Elevated PSA Postoperative Diagnosis: Same Procedure(s) Performed: MRI fusion biopsy of the prostate Anesthesia: MAC Surgeon: Andrea Rodriguez Estimated Blood Loss (ml): 0 Pathology: other (Prostate biopsies) Condition: stable Disposition: PACU Indications for Procedure: 69-year-old male with history of elevated PSA at 6.77, MRI showed evidence of a PI-RADS4 lesion along the right anterior apex discussed with him given this finding I do recommend proceeding with an MRI fusion biopsy of the prostate. Aware of the risk which includes but not limited to bleeding, and infection. He understood all the risk and agreed to proceed Description of Procedure: The patient was taken to the operating room and placed in the left lateral decubitus position. The [place] transrectal ultrasound probe was placed intrarectally. It was then placed within the stand of the [employer] MRI/TRUS Fusion for Prostate Biopsy system. The prostate was imaged in both the axial and sagittal planes,L. Using the Biopsy gun, 4 biopsies were obtained from the target lesion, there were was one lesions, . The remaining 12 biopsies of the peripheral zone were obtained utilizing a standard template. Once the procedure was completed, the ultrasound probe was removed. The patient tolerated the procedure well was taken to the recovery room stable condition
[2024-10-23 15:47] VITALS: BP 131/85; PULSE 86; RESP 18
== END 2024-10-23 15:45 | disposition home or self-care (01) ==
LOC: OR 12:50
PROVIDERS: ATTEND Urology
DX: C61 Malignant neoplasm of prostate (principal); N40.0 Benign prostatic hyperplasia without lower urinary tract symptoms; N20.0 Calculus of kidney; N60.89 Other benign mammary dysplasias of unspecified breast; K21.9 Gastro-esophageal reflux disease without esophagitis; E78.5 Hyperlipidemia, unspecified; I10 Essential (primary) hypertension; I25.10 Atherosclerotic heart disease of native coronary artery without angina pectoris; I25.2 Old myocardial infarction; F32.A Depression, unspecified; G47.33 Obstructive sleep apnea (adult) (pediatric); M19.90 Unspecified osteoarthritis, unspecified site; Z86.73 Personal history of transient ischemic attack (TIA), and cerebral infarction without residual deficits; Z87.442 Personal history of urinary calculi; Z90.89 Acquired absence of other organs; Z87.891 Personal history of nicotine dependence; Z82.49 Family history of ischemic heart disease and other diseases of the circulatory system; Z79.82 Long term (current) use of aspirin; Z79.02 Long term (current) use of antithrombotics/antiplatelets; Z79.1 Long term (current) use of non-steroidal anti-inflammatories (NSAID); Z79.899 Other long term (current) drug therapy
CPT/HCPCS: 88305; 55700; 72195; J1580; J2405; J2003; J3010; J2704

== ENCOUNTER → 2024-11-22 | Outpatient (CLI) | payer MEDICARE ==
--- NOTE | 2024-11-25 21:00 | PE ---
EXAMINATION TYPE: PET CT fusion skull to thigh DATE OF EXAM: 11/22/2024 COMPARISON: No recent pertinent CT Prior PET/CT: No prior PET/CT this location CLINICAL INDICATION: Male, 69 years old with history of C61 PROSTATE CANCER, TECHNIQUE: Following the intravenous administration of 6.06 mCi of Gallium-68 labeled PSMA, whole shirin dy images are performed from the skull base to the midthigh. Images are reviewed on the computer in the coronal, axial, and sagittal planes. Reconstructed rotating images are created on [employer] and reviewed on the computer. A localization and attenuation correction CT is performed i n conjunction with the PET scan. DLP: 951.06 mGycm SCAN: Initial FINDINGS: NECK: There is normal radiotracer distribution through salivary glands. No suspicious uptake THORAX: No suspicious uptake ABDOMEN:There is normal radiotracer excretion through the renal collecting system. Normal uptake wit hin the liver and spleen. No suspicious uptake PELVIS: There is a focal area of increased uptake within the inferior anterior right portion of the p rostate with an SUV of 41.9 compatible with the patient's known prostate cancer. OSSEOUS STRUCTURES: No abnormal uptake LOCALIZATION CT: Diverticulosis without acute diverticulitis is present. There is a punctate nonobstr ucting renal stone inferior pole right kidney. Coronary artery calcification is present. COMPARISON: None IMPRESSION: 1. Patient's known prostate cancer appears hyperintense in the anterior inferior right portion of the prostate. 2. No suspicious changes to suggest metastatic disease [facility], , 11/25/2024 8:58 PM
== END | disposition home or self-care (01) ==
LOC: RADPETMAIN 14:39
PROVIDERS: ATTEND Urology
DX: C61 Malignant neoplasm of prostate (principal); N20.0 Calculus of kidney; K57.90 Diverticulosis of intestine, part unspecified, without perforation or abscess without bleeding
CPT/HCPCS: 78815; A9596

== ENCOUNTER → 2024-12-05 | Outpatient (CLI) | payer MEDICARE ==
[2024-12-05 15:01] LABS: Appearance,Urine Clear (Clear); Bilirubin,Urine Negative (Negative); Blood,Urine Negative (Negative); Color,Urine Colorless; Glucose,Urine (UA) Negative (Negative); Ketones,Urine Negative (Negative); Leukocyte Esterase,Urine Negative (Negative); Nitrite,Urine Negative (Negative); PH, Urine 6.5 (5.0-8.0); Protein,Urine Negative (Negative); Specific Gravity,Urine 1.007 (1.001-1.035); Urobilinogen,Urine <2.0 mg/dL (<2.0)
[2024-12-05 15:53] LABS: Basophils # (A) 0.06 X 10*3/uL (0.00-0.10); Basophils % (A) 0.6 %; Eosinophils # (A) 0.01 X 10*3/uL (0.04-0.35); Eosinophils % (A) 0.1 %; HCT 42.8 % (39.6-50.0); HGB 14.4 g/dL (13.0-17.0); Lymphocytes # (A) 1.22 X 10*3/uL (0.90-5.00); Lymphocytes % (A) 11.5 %; MCH 30.1 pg (27.0-32.0); MCHC 33.6 g/dL (32.0-37.0); MCV 89.5 FL (80.0-97.0); Mean Platelet Volume 10.8 FL (9.5-12.2); Monocytes # (A) 0.53 X 10*3/uL (0.20-1.00); NRBC Per 100 WBC 0 X 10*3/uL (0.00-0.01); Neutrophils # (A) 8.63 X 10*3/uL (1.80-7.70); Neutrophils % (A) 81.7 %; Platelet Count 280 X 10*3/uL (140-440); RBC 4.78 X 10*6/uL (4.40-5.60); RDW 13.2 % (11.5-14.5); WBC 10.57 X 10*3/uL (4.50-10.00)
[2024-12-05 16:03] LABS: Blood Urea Nitrogen 21.6 mg/dL (9.0-27.0); Calcium 9.8 mg/dL (8.7-10.3); Carbon Dioxide 23.3 mmol/L (21.6-31.8); Chloride 102 mmol/L (96-109); Glucose 115 mg/dL (70-110); Potassium 4.5 mmol/L (3.5-5.5); Sodium 137 mmol/L (135-145)
== END | disposition home or self-care (01) ==
LOC: LABPAT 11:27
PROVIDERS: ATTEND Urology
DX: Z01.812 Encounter for preprocedural laboratory examination (principal); C61 Malignant neoplasm of prostate
CPT/HCPCS: 80048; 81003; 85025; 86850; 86900; 86901; 87086

== ENCOUNTER 2024-12-13 10:05 | Day surgery (SDC) | payer MEDICARE ==
[2024-12-11 09:48] VITALS: BMI 30.7
--- NOTE | 2024-12-11 10:02 | P.HPIHPCON ---
History of Present Illness H&P Date: 12/11/24 Chief Complaint: Prostate cancer This is a 69-year-old male with history of Garber 9 prostate cancer. Underwent a PSMA PET scan that showed no evidence of metastatic disease. Discussed with him option of robotic radical prostatectomy versus radiation therapy. Risk and benefit of each approach were discussed. He agreed to proceed with a robotic radical prostatectomy he is aware of the risk which include but not limited to bleeding, infection, injury to nearby organs. Risk of urinary incontinence and erectile dysfunction was discussed. Risk of cancer recurrence, the need of additional treatments was also discussed. He is aware he is at a higher risk of cancer recurrence given his pathology. He understood all the risk and agreed to proceed Consent for Procedure: I have explained the operation/procedure to the patient, including the risks, benefits, side effects, alternative therapies (including not receiving the proposed treatment or service), the likelihood of the patient achieving his/her goals, and potential recuperation problems for the procedure/sedation/analgesia, as well as any blood products, if indicated. I also explained to the patient the risks, benefits and side effects of the alternatives, as well as the risks related to not receiving the proposed procedure, care, treatment, or services. Past Medical History Past Medical History: Cancer, Chest Pain / Angina, CVA/TIA, GERD/Reflux, Hyperlipidemia, Hypertension, Myocardial Infarction (SD), Osteoarthritis (OA), Skin Disorder, Sleep Apnea/CPAP/BIPAP Additional Past Medical History / Comment(s): Current prostate cancer, hx kidney stones, no residual from TIA, uses CPAP, hx eczema. Last Myocardial Infarction Date:: 2012,2017,2018 History of Any Multi-Drug Resistant Organisms: None Reported Past Surgical History: Heart Catheterization, Heart Catheterization With Stent, Orthopedic Surgery, Tonsillectomy Additional Past Surgical History / Comment(s): Right foot and right ankle surgery, colonoscopy, prostate biopsy. Past Anesthesia/Blood Transfusion Reactions: No Reported Reaction Date of Last Stent Placement:: 2017 Smoking Status: Former smoker - Past Family History Mother Family Medical History: Cancer Additional Family Medical History / Comment(s): Mother at age 38 from cervical cancer status post cobalt radiation treatment. Father Family Medical History: Cancer, Hypertension Additional Family Medical History / Comment(s): Father at age 70 with metastatic prostate cancer. Brother(s) Family Medical History: Coronary Artery Disease (CAD), Myocardial Infarction (SD) Additional Family Medical History / Comment(s): Patient has 1 brother that at age 60 from myocardial infarction with previously known coronary artery disease. Sister(s) Additional Family Medical History / Comment(s): Patient has 1 sister with no major medical problems. Patient has 2 daughters and one has hypertension. Medications and Allergies Home Medications Medication Instructions Recorded Confirmed Type Aspirin 81 mg PO DAILY 10/14/16 12/11/24 History Citalopram Hydrobromide [CeleXA] 20 mg PO DAILY 10/14/16 12/11/24 History Losartan/Hydrochlorothiazide 1 tab PO DAILY 10/14/16 12/11/24 History [Losartan-Hctz 100-25 mg Tab] Metoprolol Succinate (ER) [Toprol 50 mg PO DAILY 10/14/16 12/11/24 History XL] Atorvastatin [Lipitor] 80 mg PO HS #30 tab 10/25/17 12/11/24 Rx Ezetimibe [Zetia] 10 mg PO DAILY #30 tab 10/25/17 12/11/24 Rx Pantoprazole Sodium [Protonix] 40 mg PO DAILY 09/09/19 12/11/24 History amLODIPine BESYLATE [Norvasc] 5 mg PO HS #0 09/11/19 12/11/24 Rx Ibuprofen [Motrin] 800 mg PO DIRECTED PRN 10/22/24 12/11/24 History Spironolactone 25 mg PO DAILY 10/22/24 12/11/24 History Tamsulosin [Flomax] 0.4 mg PO DAILY 10/22/24 12/11/24 History hydrALAZINE HCL 25 mg PO BID 10/22/24 12/11/24 History Acetaminophen [Tylenol Extra 500 - 1,000 mg PO Q4-6H PRN 12/11/24 12/11/24 History Strength] Multivitamins, Thera [Multivitamin 1 tab PO DAILY 12/11/24 12/11/24 History (formulary)] Allergies Allergy/AdvReac Type Severity Reaction Status Date / Time No Known Allergies Allergy Verified 10/23/24 13:44 Surgical - Exam - General no distress, no pain - Eyes normal ocular movement, no pale - ENT normal nares, normal mucosa - Respiratory normal expansion, normal respiratory effort - Abdomen Abdomen: soft, non tender Assessment and Plan Assessment: OR for robotic radical prostatectomy with bilateral pelvic lymph node dissection
[2024-12-13] MEDS: LACTATED RINGERS 1,000 ML IV ONE ×3 (10:57→16:48)
[2024-12-13] MEDS: LACTATED RINGERS 1,000 ML IV SCH ×2 (10:58→11:00)
[2024-12-13] MEDS: fentaNYL (PF) 50 MCG/ML 2 ML AMP IVP PRN (11:35)
[2024-12-13] MEDS: MIDAZOLAM 2 MG/2 ML VIAL IV PRN (11:35)
[2024-12-13] MEDS: DEXAMETHASONE SOD PHOSPHATE 4 MG/ML 1 ML VIAL IV ONE (11:48)
[2024-12-13] MEDS: ONDANSETRON 4 MG/2 ML VIAL IVP ONE (11:48)
[2024-12-13] MEDS: HEPARIN SODIUM,PORCINE 5,000 UNIT/ML 1 ML VIAL SQ PRN (11:49)
--- NOTE | 2024-12-13 12:03 | P.ANPRN ---
Procedure Note - Anesthesia - Nerve Block Performed Bilateral Erector Spinae Single Time Out Performed: Yes (1134) Date of Procedure: 12/13/24 Procedure Start Time: 11:35 Procedure Stop Time: 11:41 Location of Patient: PreOp Indication: Acute Post-Operative Pain, Requested by Surgeon Specifically requested for management of pain by : Andrea Rodriguez Sedation Type: Sedate with meaningful contact maintained Preparation: Sterile Prep Position: Sitting Catheter: None Needle Types: Pajunk Needle Gauge: 21 Ultrasound used to visualize needle placement: Yes Ultrasound used to observe medication spread: Yes Injectate: 0.5% Ropivacaine (see comment for volume) (15cc+10cc nacl pf+decadron 4mg) Blood Aspirated: No Pain Paresthesia on Injection Noted: No Resistance on Injection: Normal Image Stored and Saved: Yes Events: Uneventful and Well Tolerated
[2024-12-13] MEDS ORDERED: HYDROmorphone (PF) 1 MG/ML ONE (12:40)
[2024-12-13] MEDS ORDERED: fentaNYL (PF) 50 MCG/ML 2 ML AMP ONE (12:40)
[2024-12-13] MEDS ORDERED: ROCURONIUM 10 MG/ML (5 ML VIAL) IV ONE (12:40)
[2024-12-13] MEDS ORDERED: GLYCOPYRROLATE 0.2 MG/ML 2 ML VIAL ONE (12:40)
[2024-12-13] MEDS ORDERED: NEOSTIGMINE 1 MG/ML 10 ML VIAL ONE (12:40)
[2024-12-13] MEDS ORDERED: PROPOFOL 10 MG/ML 20 ML VIAL IV ONE (12:40)
[2024-12-13] MEDS ORDERED: MIDAZOLAM 2 MG/2 ML VIAL ONE (12:40)
[2024-12-13] MEDS ORDERED: LIDOCAINE 1% INJ 10MG/ML (20 ML MDV) ONE (12:40)
[2024-12-13] MEDS ORDERED: SUCCINYLCHOLINE CHLORIDE 200 MG/10 ML VIAL IV ONE (12:40)
[2024-12-13] MEDS ORDERED: PHENYLEPHRINE 10 MG/ML VIAL ONE (12:40)
[2024-12-13] MEDS: BUPIVACAINE (PF) 0.25% 30 ML VIAL SQ ONE ×2 (12:44→16:47)
[2024-12-13] MEDS ORDERED: ONDANSETRON 4 MG/2 ML VIAL IVP PRN (12:58)
[2024-12-13] MEDS ORDERED: HYDROmorphone 1 MG/ML 1 ML SYRINGE IVP PRN (12:58)
[2024-12-13] MEDS ORDERED: HYDROcodone/APAP 5-325MG 1 EACH TAB PO PRN (12:59)
--- NOTE | 2024-12-13 16:40 | P.OP ---
Date of Procedure: 12/13/24 Preoperative Diagnosis: Prostate cancer Postoperative Diagnosis: Same Procedure(s) Performed: Robotic assisted laparoscopic radical prostatectomy with bilateral pelvic lymph node dissection Implants: None Anesthesia: YONAS Surgeon: Andrea Rodriguez Estimated Blood Loss (ml): 100 Pathology: other (Prostate, bilateral seminal vesicle, bilateral pelvic lymph nodes, right apical margin) Condition: stable Disposition: PACU Indications for Procedure: This is a 69-year-old male with history of Glade 9 prostate cancer. Underwent a PSMA PET scan that showed no evidence of metastatic disease. Discussed with him option of robotic radical prostatectomy versus radiation therapy. Risk and benefit of each approach were discussed. He agreed to proceed with a robotic radical prostatectomy he is aware of the risk which include but not limited to bleeding, infection, injury to nearby organs. Risk of urinary incontinence and erectile dysfunction was discussed. Risk of cancer recurrence, the need of additional treatments was also discussed. He is aware he is at a higher risk of cancer recurrence given his pathology. He understood all the risk and agreed to proceed Description of Procedure: After preoperative antibiotics were started, the patient was taken to the operating room. Anesthesia was induced and the patient was placed in a supine position, with adequate padding of the pressure points, shoulders, back, legs and arms. He was then prepped and draped in the standard fashion. A critical pause was performed using two patient identifiers. A 16F jeffers catheter was placed to gravity drainage. A pneumo-peritoneum was created with placement of a Veress needle to 20 mm Hg without complication, and a 8 Fr trocar was placed above the umbillicus. Under direct vision a 8mm robotic ports was placed lateral to each rectus slightly below the camera port. The left iliac fossa 8mm port was placed. The right project construction assistant manager right iliac fossa 12mm port and right paramedian 5mm portwere placed. After the patient was placed in the trendelenberg position, the robot was then docked to the 8mm robotic ports and then each robotic arm and tower was checked in relation to the patient's legs and hands to avoid inadvertent compression. The peritoneal cavity was inspected. An inverted U-shaped incision began laterally to the left medial umbilical ligament and extended high across the midline to the right umbilical ligament. The limbs of the "U" extended to the level of the vasa on both sides. We next developed the preperitoneal space and the space of Retzius. Cautery was used to dissected the bladder away from the prostate. After the anterior bladder neck was incised and the bladder entered the the posterior bladder neck was exposed and the ureteral orifces identified. Of note patient had a significantly enlarged median lobe with intravesical extension. The posterior bladder neck was then incised and dissected away from the prostate. The vas and the seminal vesicles were now exposed and dissected to their insertions into the prostate and were not spared. The posterior layer of the Denonvillier's fascia was incised to enter zoraida the plane between prostate and perirectal fat. Each lateral pedicle was controlled with vessel sealer. No nerve preservation was performed on the right, partial nerve preservation was performed on the left. The puboprostatic ligament was incised where it inserted into the apex of the prostate and a plane between urethra and dorsal venous complex developed to expose the anterior urethral surface. The anterior wall of the urethra was transected with the cut setting a few millimeters distal to the apex of the prostate. The dorsal vein was ligated using 3-0 V lock. Thickened tissue was seen along the right side of the urethra, given the presence of his cancer on the right apex, this tissue was excised and sent as a right apical margin. bilateral obturator and external iliac lymph node packets were carefully dissected after careful visualization of the hypogastric artery and obturator nerve. There was careful attention paid to hemostasis with judicious use of cautery. The urethrovesical anastomosis was performed . the posterior denovillers was reapproximated using 3-0 V lock. A 9 and 9 inch 3-0 V-Lock suture was used to anastomose the urethra and bladder, starting at the 6:00 posterior position. Mucosa was secured in every stitch, to ensure a mucosa to mucosa anastomosis. The stitch was regularly cinched and the anastomosis tightened. Care was taken to not violate the ureteral orifices. The Jeffers catheter was advanced, the bladder filled, and the anastomosis was tested, as described above. Anastomsis was watertight at 150 mL The periumbilical fascia was closed with 1-0-PDS suture in figure of eight fashion. All ports were closed with a subcuticular 4-0 monocryl and Dermabond. Sponge, instrument, and needle counts were correct at the end of the case x2. All specimens including prostate and lymph nodes were sent to pathology for d iagnosis and will be available in a week. The patient tolerated the surgery well and without complication. He awoke without difficulty and was taken to the recovery room in stable condition
[2024-12-13 18:39] VITALS: RESP 18
[2024-12-13] MEDS: KETOROLAC 15 MG/ML 1 ML VIAL IVP SCH (20:00)
[2024-12-13] MEDS: HEPARIN SODIUM,PORCINE 5,000 UNIT/ML 1 ML VIAL SQ SCH (20:11)
[2024-12-13] MEDS: hydrALAZINE HCL 25 MG TAB PO SCH (20:12)
[2024-12-13] MEDS: ATORVASTATIN 80 MG TAB PO SCH (20:12)
[2024-12-13] MEDS: amLODIPine 5 MG TAB PO SCH (20:12)
[2024-12-13] MEDS: D5-0.45% NACL WITH KCL 20MEQ/L 1,000 ML IV SCH (21:58)
[2024-12-14] MEDS: PANTOPRAZOLE 40 MG TABLET PO SCH (06:30)
[2024-12-14] MEDS: EZETIMIBE 10 MG TAB PO SCH (09:31)
[2024-12-14] MEDS: METOPROLOL SUCCINATE (ER) 50 MG TAB.ER.24H PO SCH (09:31)
[2024-12-14] MEDS: SPIRONOLACTONE 25 MG TAB PO SCH (09:31)
[2024-12-14] MEDS: CITALOPRAM HYDROBROMIDE 20 MG TAB PO SCH (09:31)
[2024-12-14] MEDS: LOSARTAN-HCTZ 50-12.5 MG 1 EACH TAB PO SCH (11:36)
[2024-12-14] MEDS: CALCIUM CARBONATE 500 MG CHEWABLE PO PRN (12:23)
[2024-12-14] MEDS: BENZOCAINE/MENTHOL LOZENG 1 EACH LOZENGE MUCOUS MEM PRN (12:23)
--- NOTE | 2024-12-14 13:16 | P.DS ---
Providers Attending physician: Andrea Rodriguez MD Primary care physician: [facility] Course: This is a 69 yo male with hx of rosetta 9 prostate cancer underwent robotic prostatectomy on 12/13. please see op note dated 12/13 for surgery details. Patient was admitted to the hospital post operatively. He did well, he was discharged home on POD #1 at time of discharge he was tolerating diet, ambulating and pain was controlled Plan - Discharge Summary Discharge Rx Participant: Yes New Discharge Prescriptions: New Ciprofloxacin HCl [Cipro] 500 mg PO Q12HR 3 Days #6 tab Ketorolac [Toradol] 10 mg PO Q6HR PRN #15 tab PRN Reason: Pain No Action RX: Citalopram Hydrobromide [CeleXA] 20 mg PO DAILY RX: Metoprolol Succinate (ER) [Toprol XL] 50 mg PO DAILY RX: Aspirin 81 mg PO DAILY RX: Losartan/Hydrochlorothiazide [Losartan-Hctz 100-25 mg Tab] 1 tab PO DAILY RX: Atorvastatin [Lipitor] 80 mg PO HS #30 tab RX: Ezetimibe [Zetia] 10 mg PO DAILY #30 tab RX: Pantoprazole Sodium [Protonix] 40 mg PO DAILY RX: amLODIPine BESYLATE [Norvasc] 5 mg PO HS #0 Tamsulosin [Flomax] 0.4 mg PO DAILY RX: hydrALAZINE HCL 25 mg PO BID RX: Spironolactone 25 mg PO DAILY Ibuprofen [Motrin] 800 mg PO DIRECTED PRN PRN Reason: Pain Multivitamins, Thera [Multivitamin (formulary)] 1 tab PO DAILY Acetaminophen [Tylenol Extra Strength] 500 - 1,000 mg PO Q4-6H PRN PRN Reason: Pain Discharge Medication List RX: Aspirin 81 mg PO DAILY 10/14/16 [History] RX: Citalopram Hydrobromide [CeleXA] 20 mg PO DAILY 10/14/16 [History] RX: Losartan/Hydrochlorothiazide [Losartan-Hctz 100-25 mg Tab] 1 tab PO DAILY 10/14/16 [History] RX: Metoprolol Succinate (ER) [Toprol XL] 50 mg PO DAILY 10/14/16 [History] RX: Atorvastatin [Lipitor] 80 mg PO HS #30 tab 10/25/17 [Rx] RX: Ezetimibe [Zetia] 10 mg PO DAILY #30 tab 10/25/17 [Rx] RX: Pantoprazole Sodium [Protonix] 40 mg PO DAILY 09/09/19 [History] RX: amLODIPine BESYLATE [Norvasc] 5 mg PO HS #0 09/11/19 [Rx] Ibuprofen [Motrin] 800 mg PO DIRECTED PRN 10/22/24 [History] RX: Spironolactone 25 mg PO DAILY 10/22/24 [History] RX: hydrALAZINE HCL 25 mg PO BID 10/22/24 [History] Tamsulosin [Flomax] 0.4 mg PO DAILY 10/22/24 [History] Acetaminophen [Tylenol Extra Strength] 500 - 1,000 mg PO Q4-6H PRN 12/11/24 [History] Multivitamins, Thera [Multivitamin (formulary)] 1 tab PO DAILY 12/11/24 [History] Ciprofloxacin HCl [Cipro] 500 mg PO Q12HR 3 Days #6 tab 12/14/24 [Rx] Ketorolac [Toradol] 10 mg PO Q6HR PRN #15 tab 12/14/24 [Rx]
[2024-12-14 15:08] VITALS: BP 187/97; PULSE 71; TEMP 98.1
== END 2024-12-14 15:45 | disposition home or self-care (01) ==
LOC: OR 10:05 → 4SSUR 17:00 → OR 12-14 15:45
PROVIDERS: ATTEND Urology
DX: C61 Malignant neoplasm of prostate (principal); E78.5 Hyperlipidemia, unspecified; G47.30 Sleep apnea, unspecified; G89.18 Other acute postprocedural pain; I10 Essential (primary) hypertension; I25.2 Old myocardial infarction; M19.90 Unspecified osteoarthritis, unspecified site; F32.A Depression, unspecified; F90.9 Attention-deficit hyperactivity disorder, unspecified type; Z79.82 Long term (current) use of aspirin; Z79.899 Other long term (current) drug therapy; Z86.73 Personal history of transient ischemic attack (TIA), and cerebral infarction without residual deficits; Z87.891 Personal history of nicotine dependence; Z90.89 Acquired absence of other organs; Z99.89 Dependence on other enabling machines and devices
CPT/HCPCS: 38571; 55866; S2900; 64999; 88305; 88307; 88309; 94760

== ENCOUNTER → 2025-01-25 | Outpatient (CLI) | payer MEDICARE | END | disposition home or self-care (01) | LOC: LABWHC1 11:16 | PROVIDERS: ATTEND Urology | DX: C61 Malignant neoplasm of prostate (principal) | CPT/HCPCS: 36415; 84153 ==